=== PATIENT | female | born 2005 | race Caucasian/White ===

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

== ENCOUNTER 2024-04-22 09:17 | Emergency (ER) | payer OTHER, SELFPAY ==
[2024-04-22 09:35] VITALS: BP 129/85; PULSE 114; RESP 16; TEMP 37.2; O2SAT 99
[2024-04-22 09:50] LABS: EDSTREPNEGPOS1 Presumptive Negative
--- NOTE | 2024-04-22 09:50 | ED.URI ---
HPI - URI/Sore Throat General Chief Complaint: Upper Respiratory Infection Stated Complaint: congestion/throat/ears/fever Time Seen by Provider: 04/22/24 09:50 History of Present Illness HPI Narrative: 19 y/o female presented for c/o sore throat, headache, body aches, sinus pressure/congestion, bilateral ear congestion, fever/chills. Onset 2 days. Temp up to 100 yesterday. Denies cough, sob, wheezing, n/v/d. Took advil and flu medication. Denies known sick contacts. Takes emgality for migraine. Related Data Home Medications Medication Instructions Recorded Confirmed albuterol sulfate 90 mcg/actuation 2 puff inhalation DIRECTED 11/25/22 04/22/24 aerosol inhaler atogepant 60 mg tablet (Qulipta) 60 mg USEASDIRECTD 11/25/22 04/22/24 ergocalciferol (vitamin D2) 1,250 1,250 mcg PO WEEKLY 11/25/22 04/22/24 mcg (50,000 unit) capsule folic acid 1 mg tablet 1 mg PO DAILY 11/25/22 04/22/24 topiramate 100 mg tablet 100 mg PO PRN PRN Migraine Headache 11/25/22 04/22/24 bupropion HCl 150 mg 24 hr tablet, 150 mg PO DAILY 04/22/24 04/22/24 extended release galcanezumab-gnlm 120 mg/mL 120 mg subcut PRN PRN Migraine 04/22/24 04/22/24 subcutaneous pen injector Headache (Emgality Pen) norethindrone 1.5 mg-ethinyl 1 tablet PO DAILY 04/22/24 04/22/24 estradiol 30 mcg(21)/iron 75 mg(7) tablet ( (28)) Allergies Allergy/AdvReac Type Severity Reaction Status Date / Time No Known Allergies Allergy Verified 11/25/22 13:50 Review of Systems Review of Systems: CONSTITUTIONAL: Denies body aches, fever, chills, or sweats. EYES: Denies visual changes, redness, or discharge. ENT: reports rhinorrhea, congestion, sore throat, otalgia. CARDIOVASCULAR: Denies chest pain, palpitations, or edema. RESPIRATORY: Denies dyspnea. GASTROINTESTINAL: Denies abdominal pain, nausea, vomiting, or diarrhea. SKIN: Denies rash, itching, or wounds. MUSCULOSKELETAL: Denies back pain, joint pain NEUROLOGIC: reports headache PMFSH Past Medical History Medical History (Updated 04/22/24 @ 10:33 by Tonya Calle APRN) Migraine Surgical History Surgical History (Updated 04/22/24 @ 10:08 by Tonya Calle APRN) History of cholecystectomy History of tonsillectomy Exam Narrative: GENERAL: mildly Ill-appearing, no acute distress. EYES: conjunctivae clear ENT: Mucous membranes moist. TMs pearly negron with normal light reflex bilaterally; no tragal tenderness. Oropharynx not erythematous without lesions. Tonsils absent and without exudate. No drooling, no hoarseness, no trismus, uvula midline. No tripod positioning, hot potato voice, or soft palate swelling. NECK: Supple. No lymphadenopathy CHEST: Clear to auscultation, breath sounds equal. No respiratory distress, speaks in full sentences. HEART: Regular rate and rhythm. No murmur heard. SKIN: Warm, dry, no rash. NEURO: Alert and oriented x3. Course Course Emergency Course: Patient is aware of diagnosis, understands and agrees to treatment plan. Anticipatory guidance given. Patient agrees to follow-up as directed and is aware of reasons to seek care at the emergency department. Portions of this record may have been created with voice recognition software Level of Care: Express Care Visit Vital Signs Vital signs: Vital Signs Temperature 99.0 F 04/22/24 09:35 Pulse Rate 114 H 04/22/24 09:35 Respiratory Rate 16 04/22/24 09:35 Blood Pressure 129/85 04/22/24 09:35 Pulse Oximetry 99 04/22/24 09:35 Oxygen Delivery Room Air 04/22/24 09:35 Temperature 99.0 F 04/22/24 09:35 Pulse Rate 114 H 04/22/24 09:35 Respiratory Rate 16 04/22/24 09:35 Blood Pressure 129/85 04/22/24 09:35 Pulse Oximetry 99 04/22/24 09:35 Oxygen Delivery Room Air 04/22/24 09:35 MDM - URI/Sore Throat MDM Narrative Medical decision making narrative: Neg strep flu and covid result reviewed with pt. Advise supportive treatments. Colby
[2024-04-22 10:29] LABS: EDINFLUASCREEN Negative; EDINFLUBSCREEN Negative
[2024-04-22 10:32] LABS: EDSTREPNEGPOS1 Presumptive Negative
== END 2024-04-22 10:39 | disposition home or self-care (01) ==
PROVIDERS: Emergency Provider Nurse Practitioner Family; PCP Nurse Practitioner Family
DX: B34.9 Viral infection, unspecified (principal); Z20.822 Contact with and (suspected) exposure to COVID-19
CPT/HCPCS: 87081; 87426; 87804; 87880; 99213; G0463

== ENCOUNTER 2024-10-17 13:54 | Emergency (ER) | payer OTHER, SELFPAY ==
--- NOTE | 2024-10-17 13:58 | ED_ITS ---
HPI - General Adult General Chief complaint: Upper Respiratory Infection Stated complaint: Joint Pain Time Seen by Provider: 10/17/24 14:14 Source: patient Mode of arrival: ambulatory Limitations: no limitations History of Present Illness HPI narrative: 19-year-old female presents with concern for body aches for several days. She reports for 10 days she has had nasal congestion, rhinorrhea, postnasal drainage. She had fever for 1 day at the start of her symptoms. She also had 1 episode of vomiting in the last 2 weeks. She reports she is prone to joint pain and muscle aches. MD complaint: Body aches Related Data Home Medications ?Medication ?Instructions ?Recorded ?Confirmed ?Last Taken ?Type albuterol sulfate 90 mcg/actuation 2 puff inhalation DIRECTED 11/25/22 04/22/24 Unknown History aerosol inhaler atogepant 60 mg tablet (Qulipta) 60 mg USEASDIRECTD 11/25/22 04/22/24 Unknown History ergocalciferol (vitamin D2) 1,250 1,250 mcg PO WEEKLY 11/25/22 04/22/24 Unknown History mcg (50,000 unit) capsule folic acid 1 mg tablet 1 mg PO DAILY 11/25/22 04/22/24 Unknown History topiramate 100 mg tablet 100 mg PO PRN PRN Migraine Headache 11/25/22 04/22/24 Unknown History bupropion HCl 150 mg 24 hr tablet, 150 mg PO DAILY 04/22/24 04/22/24 Unknown History extended release galcanezumab-gnlm 120 mg/mL 120 mg subcut PRN PRN Migraine 04/22/24 04/22/24 Unknown History subcutaneous pen injector Headache (Emgality Pen) norethindrone 1.5 mg-ethinyl 1 tablet PO DAILY 04/22/24 04/22/24 Unknown History estradiol 30 mcg(21)/iron 75 mg(7) tablet (June FE 1.530 (28)) Allergies Allergy/AdvReac Type Severity Reaction Status Date / Time cyanocobalamin (vitamin B12) Allergy Mild Rash Verified 10/17/24 14:12 Review of Systems Review of Systems: CONSTITUTIONAL: Denies malaise, chills, sweats. Reports 1 episode of fever. EYES: Denies visual changes, redness, or discharge. ENT: Reports rhinorrhea, congestion, postnasal drainage. Denies sinus pain, otalgia or sore throat. CARDIOVASCULAR: Denies chest pain, palpitations, or edema. RESPIRATORY: Denies cough or dyspnea. GASTROINTESTINAL: Denies abdominal pain, nausea, diarrhea, bloody, or mucous stools. Reports 1 episode of vomiting GENITOURINARY: Denies dysuria, frequency, urgency, or hematuria. SKIN: Denies rash or itching. MUSCULOSKELETAL: Denies back pain, joint pain. Reports myalgia. NEUROLOGIC: Denies numbness, weakness, or headache. All systems reviewed & are unremarkable except as noted in HPI and below PMFSH Past Medical History Medical History (Updated 10/17/24 @ 14:18 by Anna Duran NP) Migraine Surgical History Surgical History (Updated 04/22/24 @ 10:08 by Tonya Calle APRN) History of cholecystectomy History of tonsillectomy Comments At time of signature, agree with nursing past medical, surgical, social and family history. There is no relevant family history pertinent to the presenting complaint Exam Narrative: GENERAL: Well-appearing, well-nourished, and in no acute distress. HEAD: Normocephalic, atraumatic. EYES: PERRLA, sclera clear, and EOMI. No nystagmus. ENT: Nares clear. Mucous membranes moist. TM pearly negron with sharp light reflex bilaterally; no tragal tenderness. Oropharynx without erythema or lesions. Tonsils not enlarged and without exudate. NECK: Supple. No lymphadenopathy. CHEST: No respiratory distress. Clear to auscultation. No bony deformities, no asymmetry. Speaks in full sentences. HEART: Regular rate and rhythm. No murmur heard. Normal peripheral pulses. EXTREMITIES: Normal range of motion. No edema. Normal strength and sensation. SKIN: Warm, dry, no visible rash. NEURO: Alert and oriented x3. PSYCH: Normal mood and affect Course Course Emergency Course: Patient is aware of diagnosis, understands and agrees to treatment plan. Anticipatory guidance given. Patient agrees to follow-up as directed and is aware of reasons to seek care at the emergency department. Portions of this record may have been created with voice recognition software Level of Care: Express Care Visit Vital Signs Vital signs: Reviewed. Medical Decision Making MDM Narrative Medical decision making narrative: The patient was evaluated by myself in the emergency department. History is obtained from patient who is an independent historian and physical exam was performed.? Available medical records were reviewed at this time. ? Exam findings and imaging show no acute concerns or changes; patient is non- toxic appearing and is in no distress. Patient is appropriate for outpatient treatment and follow-up. ? I have evaluated and discussed social determinants of health with the patient that could potentially impact subsequent diagnosis and treatment plans. ? Differential diagnosis and treatment plan were discussed with the patient. Patient agrees with discussion and after shared medical decision making agrees with plan of care. All questions were answered to the patient's satisfaction. Critical Care Time Critical Care Time Critical Care Time: No Discharge Plan Discharge Clinical Impression: Sinusitis Patient Disposition: Home, Self-Care Condition: Stable Instructions: Antibiotic Form, Sinusitis (ED) Additional Instructions: Take medication as prescribed Nonprescription pain medications, such as acetaminophen (eg, Tylenol) or ibuprofen (eg, Motrin, Advil), are recommended for pain. Flushing the nose and sinuses with a saline solution several times per day has been proven to decrease pain associated with congestion and shorten the duration of symptoms. Nasal steroids (such as Flonase, 2 sprays in each nostril daily) can help to reduce swelling inside the nose, usually within two to three days. These drugs have few side effects and relieve symptoms in most people. Oral decongestants (pseudoephedrine and phenylephrine) may be helpful if you have associated symptoms of ear pain or fullness. Nasal decongestant sprays, including oxymetazoline (Afrin) and phenylephrine (Afshin-Synephrine), can be used to temporarily treat congestion. However, these sprays should not be used for more than two to three days due to the risk of rebound congestion (when the nose becomes congested constantly unless the medication is used repeatedly), possible addiction, and long-term consequences of frequent use, including persistent nasal dryness and crusting, which is very difficult to treat once it has developed. Medications to thin secretions (such as guaifenesin) may help to clear mucus. Please follow-up with your primary care doctor in the next 1-2 days. If you cannot follow-up with your primary care doctor please go to the ED for any urgent issues. If you have any worsening of symptoms or any other concerns please go to the ED immediately. Patient Language: Lithuanian Prescriptions: New pseudoephedrine HCl [12 Hour Decongestant] 120 mg tablet extended release 120 mg PO Q12H PRN (Reason: nasal congestion) Qty: 12 0RF amoxicillin-pot clavulanate 875-125 mg tablet 1 tablet PO Q12H 10 Days Qty: 20 0RF No Action folic acid 1 mg tablet 1 mg PO DAILY ergocalciferol (vitamin D2) 1,250 mcg (50,000 unit) capsule 1,250 mcg PO WEEKLY topiramate 100 mg tablet 100 mg PO PRN PRN (Reason: Migraine Headache) Qulipta 60 mg tablet 60 mg USEASDIRECTD albuterol sulfate 90 mcg/actuation HFA aerosol inhaler 2 puff INHALATION DIRECTED norethindrone-e.estradiol-iron [June FE 1.5/30 (28)] 1.5 mg-30 mcg (21)/75 mg (7) tablet 1 tablet PO DAILY bupropion HCl 150 mg tablet extended release 24 hr 150 mg PO DAILY Emgality Pen 120 mg/mL pen injector 120 mg SUBCUT PRN PRN (Reason: Migraine Headache) Follow-up/Referrals: Elba,Laura Vu APN [Primary Care Provider] - Time of Disposition: 14:20
[2024-10-17 14:11] VITALS: BP 119/88; PULSE 101; RESP 16; TEMP 36.7; O2SAT 100
== END 2024-10-17 14:26 | disposition home or self-care (01) ==
PROVIDERS: Emergency Provider Nurse Practitioner; PCP Nurse Practitioner Family
DX: J32.9 Chronic sinusitis, unspecified (principal)
CPT/HCPCS: 99213; G0463

== ENCOUNTER 2025-04-17 08:58 | Outpatient (CLI) | payer OTHER, SELFPAY ==
--- NOTE | ~2025-04-17 | US_ITS ---
EXAMINATION TYPE: US breast BI limited COMPARISON: NONE REASON FOR STUDY: ASYMMETR TO LOWER INNER RIDGE OF R/L BREAST TECHNIQUE: Targeted sonographic evaluation of the bilateral breasts was performed. INTERPRETATION: No mass lesion or fluid collection seen at the areas scanned. No sonographic abnormality seen in the regions scanned. IMPRESSION: No sonographic correlate seen at the areas of clinical concern in the lower, inner breasts. BI-RADS CATEGORY: BI-RADS 1: Negative Reviewed, dictated and finalized at location M. IMPRESSION: No sonographic correlate seen at the areas of clinical concern in the lower, in ner breasts. BI-RADS CATEGORY: BI-RADS 1: Negative
--- OUTSIDE RECORDS SUMMARY | 2025-04-17 09:08 | XMS_ITS | Encounter Summary ---
Author Organization [facility] Address [address] [place] [address] Phone Care Team Providers Care Accounting Representative Name Role Phone Aspen Brock APRN, INTERNATIONAL ACCOUNT MANAGER Unavailable [phone]- [phone] Laura Arreola APRN, MACHINIST HELPER Primary Care Provider [phone] Alejandro Carson MD Unavailable Leslie Guo APRN, MACHINIST HELPER Unavailable Ortiz Martinez MD Unavailable [phone] Reason for Visit * Reason Comments Medication Refill Encounter Details Date Type Department Care Team (Late st Contact Info) Description 05/05/2023 Refill [facility] [address] [place] [id number] Aspen Brock, FIRST ASSISTANT MANAGER, INTERNATIONAL ACCOUNT MANAGER [address] [place] [address] Medication Refill Social History Tobacco Use Types Packs/Day Years Used Date Smoking Tobacco: Never Smokeless Tobacco: Never Alcohol Use Standard Drinks/Week Comments Never 0 (1 standard drink = 0.6 oz pur e alcohol) Sexually Active Control Partners Comments Not Currently Comments No Sex and Gender Information Value Date Recorded Sex Assigned at Not on file Legal Sex Female 10:11 AM CDT Gender Identity Not on file Sexual Orientation Not on file documented as of this encounter Miscellaneous Notes * Telephone Encounter - JaronKerry marin RN - 05/05/2023 7:59 AM CDT Medication failed the protocol, provider to review and approve the medication order if appropriate. Requested Prescriptions Pending Prescriptions Disp Refills topiramate (TOPAMAX) 100 MG Tablet [Pharmacy Med Name: TOPIRAMATE 100MG TABLETS] 60 Tablet 1 Sig: TAKE 1 TABLET BY MOUTH TWICE DAILY Not Delegated - Anticonvulsants Excluding Benzodiazepines Protocol Failed - 05/05/2023 5:38 AM Failed - This refill cannot be delegated Passed - Visit with relevant provider in past 12 months or upcoming 90 days Recent Visits Date Type Provider Dept 02/13/23 Office Visit Aspen Brock APRN, [facility] 10/21/22 Office Visit Aspen Brock APRN, INTERNATIONAL ACCOUNT MANAGER [facility] [address] 10/05/22 Office Visit Aspen Brock APRN, INTERNATIONAL ACCOUNT MANAGER [facility] 09/06/22 Office Visit Aspen Brock APRN, INTERNATIONAL ACCOUNT MANAGER [facility] 07/22/22 Office Visit Aspen Brock APRN, INTERNATIONAL ACCOUNT MANAGER [facility] 06/22/22 Office Visit Aspen Brock APRN, INTERNATIONAL ACCOUNT MANAGER [facility] [address] 05/13/22 Office Visit Aspen Brock APRN, [facility] Showing recent visits within past 365 days and meeting all other requirements Future Appointments Date Type Provider Dept 05/16/23 Appointment Aspen Brock APRN, INTERNATIONAL ACCOUNT MANAGER [facility] Showing future appointments within next 90 days and meeting all other requirements documented in this encounter Plan of Treatment Upcoming Encounters Date Type Department Care Team (Late st Contact Info) Description 04/22/2025 9:15 AM CDT Office Visit [facility] On[facility] [address] [place] [id number] Sophie Aguirre, PAC [address] [place] [address] Rosita Willard, FIRST ASSISTANT MANAGER, MACHINIST HELPER [address] [place] [address] Discharge Disposition: Discharged to home or Selfcare 07/07/2025 3:00 PM CDT [facility] [address] [place] [phone] Aspen Brock FIRST ASSISTANT MANAGER, INTERNATIONAL ACCOUNT MANAGER [address] [place] [address] documented as of this encounter Visit Diagnoses Diagnosis Chronic migraine w/o aura w/o status migrainosus, not intractable Chronic migraine without aura, without mention of intractable migraine without mention of status migrainosus documented in this encounter Care Teams Accounting Representative Relationship Specialty Start Date End Date Laura Arreola APRN, MACHINIST HELPER [address] [address] PCP - General Family Medicine 07/22/22 Aspen Brock, FIRST ASSISTANT MANAGER, INTERNATIONAL ACCOUNT MANAGER [address] [place] [address] Nurse Practitioner Advanced Practice Nurse 12/31/21 Alejandro Carson MD [address] [address] Consulting Physician Colon and Rectal Surgery 06/19/23 Leslie Guo APRN, MACHINIST HELPER [address] [place] [address] Nurse Practitioner Advanced Practice Nurse 12/28/22 Ortiz Martinez MD [address] [place] [address] Consulting Physician Medical Oncology 10/13/23 documented as of this encounter
--- OUTSIDE RECORDS SUMMARY | 2025-04-17 09:08 | XMS_ITS | Referral Summary ---
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); Keratosis pilaris from Last 3 Months Allergies No known active allergies Medications albuterol HFA (PROVENTIL HFA,VENTOLIN HFA,PROAIR HFA) 90 mcg/actuation inhaler 1 Active diphenhydrAMIN E 2.5 mg/mL liquid Take 5 mL (12.5 mg total) by mouth every 6 (six) hours as needed Active famotidine (PEPCID) 20 mg tablet 2 Active dextroamphetam ine-amphetamin e XR (ADDERALL XR) 5 mg 24 hr capsule Take 2 capsules (10 mg total) by mouth every morning Immediate release 2 Active FLUoxetine (PROzac) 10 mg tablet/capsule Take 1 tablet/capsule (10 mg total) by mouth 1 Active fluticasone propionate (FLONASE) 50 mcg/actuation nasal spray 2 Active folic acid (FOLVITE) 1 mg tablet 2 Active topiramate (TOPAMAX) 100 mg tablet Take 1 tablet (100 mg total) by mouth 2 (two) times a day 2 Active Junel 1.5/30, 21, 1.5-30 mg-mcg tablet per tablet 2 Active calcium carbonate-otf min D3 1,250mg (500mg elemental) - 5 mcg (200 units) per tablet Take 1 tablet by mouth 2 (two) times a day with meals 50,000 a week Active traZODone (DESYREL) 50 mg tablet Take 1 tablet (50 mg total) by mouth nightly Active metoclopramide (REGLAN) 5 mg tablet Take 1 tablet (5 mg total) by mouth 2 (two) times a day with lunch and bedtime Active ergocalciferol (VITAMIN D) 50,000 unit capsule Take 1 capsule (50,000 Units total) by mouth 3 Active hyoscyamine (LEVSIN) 0.[address] 1 tablet (0.125 mg total) under the tongue every 4 (four) hours as needed 1 Active cyclobenzaprin e (FLEXERIL) 5 mg tablet Take 1 tablet (5 mg total) by mouth 3 (three) times a day as needed for muscle spasms Active dicyclomine (BENTYL) 20 mg tablet Take 1 tablet (20 mg total) by mouth every 6 (six) hours Active Emgality Pen 120 mg/mL pen injector ADMINISTER 1 ML UNDER THE SKIN EVERY 28 DAYS 3 Active naproxen (NAPROSYN) 500 mg tablet Take 1 tablet (500 mg total) by mouth every 8 (eight) hours as needed 3 Active hydrOXYzine (ATARAX) 10 mg tablet Take 2.5 tablets (25 mg total) by mouth every 8 (eight) hours as needed 3 Active buPROPion XL (WELLBUTRIN XL) 150 mg 24 hr tablet Take 1 tablet (150 mg total) by mouth daily as needed 4 Active propranolol LA (INDERAL LA) 60 mg 24 hr capsule Take 1 capsule (60 mg total) by mouth daily 30 capsule 11 4 06/19/20 25 Active guaiFENesin-co deine (GUAITUSS AC) liquid 100-10 mg/5 mLIndications: Influenza Take 5 mL by mouth 4 (four) times a day as needed for cough or congestion Collaborating physician Avery Mauro MD 120 mL 5 Active Active Problems Problem Noted Date Diagnosed Date Acute bronchospasm due to viral infection 2024 Influenza 11/08/2024 Tachycardia, unspecified 11/02/2023 Syncope and collapse 11/02/2023 Palpitations 08/24/2022 Immunizations Immunization Administration Dates Next Due DTaP 04/02/2008, 4,2003,05/20,2003 Hep A, Ped Unspecified 04/02/2008,02/19/2007 Hep B / HiB 01/20/2004,2003,2003 Hep B, Adolescent or Pediatric 2003 IPV 04/02/2008, 3,2003,03/20 Influenza LAIV (Nasal) 08/06/2012 Influenza, Live, Intranasal, Quadrivalent 08/25/2014 Influenza, Quadrivalent, Spl it, Preservative Free, Intramuscular 07/21/2020,08/17/2015,08/22/2013 Influenza, Split 10/04/2010, 0,08/13/2009,07/31 Influenza, Unspecified 08/23/2007,2003,2003,09/03 MMR 04/02/2008,01/20/2004 Meningococcal MCV4P (Menactra) 07/21/2020,2013 Pneumococcal Conjugate 7-Valent 07/27/20 04,2003,2003,03/20 Tdap 08/22/2013 Varicella 04/02/2008,07/27/2004 Social History Tobacco Use Types Packs/Day Years Used Date Smoking Tobacco: Never Smokeless Tobacco: Never Tobacco Cessation:Counseling Given: Not Answered Alcohol Use Standard Drinks/Week Comments Not Currently 0 (1 standard drink = 0.6 oz pur e alcohol) AUDIT-C Answer Date Recorded Q1: How often do you have a drink containing alcohol? Never 12/21/2023 Q2: How many drinks containi ng alcohol do you have on a typical day when you are drinking? Patient does not drink Q3: How often do you have si x or more drinks on one occasion? Never 12/21/2023 Personal Safety Answer Date Recorded Have you ever been in or are you currently in a harmful physical or emotional relationship or is someone making you feel afraid or unsafe? Denies 11/08/2024 Comments No Sex and Gender Information Value Date Recorded Sex Assigned at Not on file Legal Sex Female 11:11 AM PROCESSING MGR Gender Identity Not on file Sexual Orientation Not on file Last Filed Vital Signs Vital Sign Reading Time Taken Comments Blood Pressure 113/79 11/08/2024 4:06 PM PROCESSING MGR Pulse 104 11/08/2024 4:06 PM PROCESSING MGR Temperature 36.1 C (97 F) 11/08/2024 4:06 PM PROCESSING MGR Respiratory Rate 20 11/08/2024 4:06 PM PROCESSING MGR Oxygen Saturation 97% 11/08/2024 4:06 PM PROCESSING MGR Inhaled Oxygen Concentration - - Weight 75.3 kg (166 lb) 11/08/2024 4:06 PM PROCESSING MGR Height 162.6 cm (5' 4) 11/08/2024 4:06 PM PROCESSING MGR Body Mass Index 28.49 11/08/2024 4:06 PM PROCESSING MGR Plan of Treatment Not on file Insurance [facility] Care Teams Metal Bonding Helper Relationship Specialty Start Date End Date Laura Arreola NP [address] [place] [facility] [place] [id number] PCP - General Nurse Practitioner 08/02/22
--- OUTSIDE RECORDS SUMMARY | 2025-04-17 09:08 | XMS_ITS | Encounter Summary ---
Author Organization [facility] Address [address] [facility] [place] [address] Phone Care Team Providers Care Tire Design Engineer Name Role Phone Aspen Brock APRN, CORE SHAPER TOP Unavailable +- [phone] Laura Arreola APRN, RUBY ENGINEER Primary Care Provider [phone] Alejandro Carson MD Unavailable Leslie Guo APRN, RUBY ENGINEER Unavailable Ortiz Martinez MD Unavailable [phone] Reason for Visit * Reason Comments Medication Refill Encounter Details Date Type Department Care Team (Late st Contact Info) Description 09/22/2023 Refill [facility] - Neurology [facility] [address] [place] [phone] Aspen Brock SLAT PICKLER, CORE SHAPER TOP [address] [place] [address] Medication Refill Social History Tobacco Use Types Packs/Day Years Used Date Smoking Tobacco: Never Smokeless Tobacco: Never Alcohol Use Standard Drinks/Week Comments Never 0 (1 standard drink = 0.6 oz pur e alcohol) Sexually Active Control Partners Comments Not Currently Male Comments No Sex and Gender Information Value Date Recorded Sex Assigned at Not on file Legal Sex Female 10:11 AM CDT Gender Identity Not on file Sexual Orientation Not on file documented as of this encounter Miscellaneous Notes * Telephone Encounter - Kerry Salmeron RN - 09/22/2023 12:55 PM CST Medication failed the protocol, provider to review and approve the medication order if appropriate. Requested Prescriptions Pending Prescriptions Disp Refills topiramate (TOPAMAX) 100 MG Tablet [Pharmacy Med Name: TOPIRAMATE 100MG TABLETS] 180 Tablet Sig: TAKE 1 TABLET BY MOUTH TWICE DAILY Not Delegated - Anticonvulsants Excluding Benzodiazepines Protocol Failed - 09/22/2023 5:40 AM Failed - This refill cannot be delegated Passed - Visit with relevant provider in past 12 months or upcoming 90 days Recent Visits Date Type Provider Dept 05/16/23 Office Visit Apsen Brock APRN, [facility] 02/13/23 Office Visit Aspen Brock APRN, [facility] 10/21/22 Office Visit Aspen Brock APRN, [facility] 10/05/22 Office Visit Aspen Brock APRN, [facility] Showing recent visits within past 365 days and meeting all other requirements Future Appointments Date Type Provider Dept 11/15/23 Appointment Aspen Brock APRN, [facility] Showing future appointments within next 90 days and meeting all other requirements NDANT COIN OPERATED LAUNDRY documented in this encounter Plan of Treatment Upcoming Encounters Date Type Department Care Team (Late st Contact Info) Description 04/22/2025 9:15 AM CDT Office Visit [facility] Oncology Services [address] [place] [phone] Sophie Aguirre, PAC [address] [place] [address] Rosita Willard SLAT PICKLER, RUBY ENGINEER [address] [place] [address] Discharge Disposition: Discharged to home or Selfcare 07/07/2025 3:00 PM CDT Office Visit [facility] - Neurology [facility] [address] [place] [address] Aspen Brock APRN, CORE SHAPER TOP [address] [place] [address] documented as of this encounter Visit Diagnoses Diagnosis Chronic migraine w/o aura w/o status migrainosus, not intractable Chronic migraine without aura, without mention of intractable migraine without mention of status migrainosus documented in this encounter Care Teams Tire Design Engineer Relationship Specialty Start Date End Date Laura Arreola APRN, RUBY ENGINEER [address] [address] PCP - General Family Medicine 07/22/22 Aspen Brock APRN, CORE SHAPER TOP [address] [place] [address] Nurse Practitioner Advanced Practice Nurse 12/31/21 Alejandro Carson MD [address] [address] Consulting Physician Colon and Rectal Surgery 06/19/23 Leslie Guo APRN, RUBY ENGINEER [address] [place] [address] Nurse Practitioner Advanced Practice Nurse 12/28/22 Ortiz Martinez MD [address] [place] [address] Consulting Physician Medical Oncology 10/13/23 documented as of this encounter
--- OUTSIDE RECORDS SUMMARY | 2025-04-17 09:08 | XMS_ITS | Encounter Summary ---
Author Organization [facility] Address [address] [facility] [place] [address] Phone Care Team Providers Care Circus Performer Name Role Phone Aspen Brock APRN, PHOTOGRAPHER LITHOGRAPHIC Unavailable [phone]- [phone] Laura Arreola APRN, SHOW CARD WRITER Primary Care Provider [phone] Alejandro Carson MD Unavailable Leslie Guo APRN, SHOW CARD WRITER Unavailable Ortiz Martinez MD Unavailable [phone] Reason for Visit * Reason Comments Medication Refill Encounter Details Date Type Department Care Team (Late st Contact Info) Description 09/16/2022 Refill [facility] - [facility] [address] [place] [phone] Aspen Brock PATIENT ADMITTING REPRESENTATIVE, PHOTOGRAPHER LITHOGRAPHIC [address] [place] [address] Medication Refill Social History Tobacco Use Types Packs/Day Years Used Date Smoking Tobacco: Never Smokeless Tobacco: Never Alcohol Use Standard Drinks/Week Comments Never 0 (1 standard drink = 0.6 oz pur e alcohol) Comments No Sex and Gender Information Value Date Recorded Sex Assigned at Not on file Legal Sex Female 10:11 AM CDT Gender Identity Not on file Sexual Orientation Not on file COVID-19 Exposure Response Date Recorded In the last 10 days, have yo u been in contact with someone who was confirmed or suspected to have Coronavirus/COVID-19? No / Unsure 09/12/2022 10:43 AM LIFE SKILLS COORDINATOR VOLUNTEER documented as of this encounter Plan of Treatment Upcoming Encounters Date Type Department Care Team (Late st Contact Info) Description 04/22/2025 9:15 AM CDT [facility] [address] [place] [phone] Sophie Aguirre, PAC [address] [place] [address] Rosita Willard APRN, SHOW CARD WRITER [address] [place] [address] Discharge Disposition: Discharged to home or Selfcare 07/07/2025 3:00 PM CDT Office Visit [facility] Neurology [facility] [address] [place] [phone] Asepn Brock PATIENT ADMITTING REPRESENTATIVE, PHOTOGRAPHER LITHOGRAPHIC [address] [place] [address] documented as of this encounter Visit Diagnoses Diagnosis Chronic migraine w/o aura w/o status migrainosus, not intractable Chronic migraine without aura, without mention of intractable migraine without mention of status migrainosus documented in this encounter Care Teams Circus Performer Relationship Specialty Start Date End Date Laura Arreola APRN, SHOW CARD WRITER [address] [place] [address] PCP - General Family Medicine 07/22/22 Aspen Brock, PATIENT ADMITTING REPRESENTATIVE, PHOTOGRAPHER LITHOGRAPHIC [address] [place] [address] Nurse Practitioner Advanced Practice Nurse 12/31/21 Alejandro Carson MD #[address] [address] Consulting Physician Colon and Rectal Surgery 06/19/23 Leslie Guo APRN, SHOW CARD WRITER [address] [place] [address] Nurse Practitioner Advanced Practice Nurse 12/28/22 Ortiz Martinez MD [address] [place] [address] Consulting Physician Medical Oncology 10/13/23 documented as of this encounter
--- OUTSIDE RECORDS SUMMARY | 2025-04-17 09:08 | XMS_ITS | Encounter Summary ---
Author Organization [facility] Address [address] [facility] [place] [address] Phone Care Team Providers Care Panama Hat Blocker Name Role Phone Aspen Brock APRN, INSIDE SALES ACCOUNT MANAGER Unavailable [phone]- [phone] Laura Arreola APRN, COMBINATION WELDER Primary Care Provider [phone] Alejandro Carson MD Unavailable Leslie Guo APRN, COMBINATION WELDER Unavailable Ortiz Martinez MD Unavailable [phone] Reason for Visit * Reason Comments Medication Refill Encounter Details Date Type Department Care Team (Late st Contact Info) Description 11/17/2022 Refill [facility] - Neurology [facility] [address] [place] [phone] Aspen Brock CAPTAIN ROOM SERVICE, INSIDE SALES ACCOUNT MANAGER [address] [place] [address] Medication Refill Social History Tobacco Use Types [...] suspected to have Coronavirus/COVID-19? No / Unsure 10/21/2022 10:58 AM HORTICULTURAL WORKER documented as of this encounter Plan of Treatment Upcoming Encounters Date Type Department Care Team (Late st Contact Info) Description 04/22/2025 9:15 AM CDT [facility] [address] [place] [phone] Sophie Aguirre, PAC [address] [place] [address] Rosita Willard APRN, COMBINATION WELDER [address] [place] [address] Discharge Disposition: Discharged to home or Selfcare 07/07/2025 3:00 PM CDT Office Visit [facility] Neurology [facility] [address] [place] [phone] Aspen Brock CAPTAIN ROOM SERVICE, INSIDE SALES ACCOUNT MANAGER [address] [place] [address] documented as of this encounter Visit Diagnoses Diagnosis Chronic migraine w/o aura w/o status migrainosus, not intractable Chronic migraine without aura, without mention of intractable migraine without mention of status migrainosus documented in this encounter Care Teams Panama Hat Blocker Relationship Specialty Start Date End Date Laura Arreola APRN, COMBINATION WELDER [address] [place] [address] PCP - General Family Medicine 07/22/22 Aspen Brock, CAPTAIN ROOM SERVICE, INSIDE SALES ACCOUNT MANAGER [address] [place] [address] Nurse Practitioner Advanced Practice Nurse 12/31/21 Alejandro Carson MD #[address] [address] Consulting Physician Colon and Rectal Surgery 06/19/23 Leslie Guo APRN, COMBINATION WELDER [address] [place] [address] Nurse Practitioner Advanced Practice Nurse 12/28/22 Ortiz Martinez MD [address] [place] [address] Consulting Physician Medical Oncology 10/13/23 documented as of this encounter
--- OUTSIDE RECORDS SUMMARY | 2025-04-17 09:08 | XMS_ITS | Encounter Summary ---
Author Organization [facility] Address [address] [facility] [place] [address] Phone Care Team Providers Care Professor Of Archaeology Name Role Phone Aspen Brock APRN, STATE GAME WARDEN Unavailable [phone]- [phone] Laura Arreola APRN, SHEET METAL JOURNEYMAN Primary Care Provider [phone] Alejandro Carson MD Unavailable Leslie Guo APRN, SHEET METAL JOURNEYMAN Unavailable Ortiz Martinez MD Unavailable [phone] Reason for Visit * Reason Comments Medication Refill Encounter Details Date Type Department Care Team (Late st Contact Info) Description 10/14/2023 Refill [facility] - Neurology [facility] [address] [place] [phone] Aspen Brock CASTING WHEEL OPERATOR HELPER, STATE GAME WARDEN [address] [place] [address] Medication Refill Social History Tobacco Use Types [...] Telephone Encounter - Kerry Salmeron RN - 10/16/2023 8:42 AM CST Medication failed the protocol, provider to review and approve the medication order if appropriate. Requested Prescriptions Pending Prescriptions Disp Refills Emgality 120 MG/ML Solution Auto-injector [Pharmacy Med Name: Emgality 120 MG/ML Subcutaneous Solution Auto-injector] 1 mL 2 Sig: INJECT 120 MG UNDER THE SKIN EVERY 28 DAYS Not Delegated - Off Protocol Failed - 10/14/2023 9:53 AM Failed - This refill cannot be delegated Passed - Visit with relevant provider in past 12 months or upcoming 90 days Recent Visits Date Type Provider Dept 05/16/23 Office Visit Aspen Brock APRN, [facility] 02/13/23 Office Visit Aspen Brock APRN, STATE GAME WARDEN [facility] 10/21/22 Office Visit Aspen Brock APRN, [facility] Showing recent visits within past 365 days and meeting all other requirements Future Appointments Date Type Provider Dept 11/15/23 Appointment [facility] Showing future appointments within next 90 days and meeting all other requirements [facility] documented in this encounter Plan of Treatment Upcoming Encounters Date Type Department Care Team (Late st Contact Info) Description 04/22/2025 9:15 AM CDT Office Visit [facility] On[facility] Services [address] [place] [address] Sophie Aguirre, PAC [address] [place] [address] Rosita Willard CASTING WHEEL OPERATOR HELPER, SHEET METAL JOURNEYMAN [address] [place] [address] Discharge Disposition: Discharged to home or Selfcare 07/07/2025 3:00 PM CDT Office Visit [facility] - Neurology [facility] [address] [place] [address] Aspen Brock APRN, STATE GAME WARDEN [address] [place] [address] documented as of this encounter Visit Diagnoses Not on filedocumented in this encounter Care Teams Professor Of Archaeology Relationship Specialty Start Date End Date Laura Arreola APRN, SHEET METAL JOURNEYMAN [address] [place] [address] PCP - General Family Medicine 07/22/22 Aspen Brock APRN, STATE GAME WARDEN [address] [place] [address] Nurse Practitioner Advanced Practice Nurse 12/31/21 Alejandro Carson MD #[address] [address] Consulting Physician Colon and Rectal Surgery 06/19/23 Leslie Guo APRN, SHEET METAL JOURNEYMAN [address] [place] [address] Nurse Practitioner Advanced Practice Nurse 12/28/22 Ortiz Martinez MD [address] [place] [address] Consulting Physician Medical Oncology 10/13/23 documented as of this encounter
--- OUTSIDE RECORDS SUMMARY | 2025-04-17 09:08 | XMS_ITS | Clinical Summary ---
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); Keratosis pilaris from Last 3 Months Immunizations Immunization Administration Dates Next Due DTaP [...] 7-Valent 07/27/20 04,2003,2003,03/20 Tdap 08/22/2013 Varicella 04/02/2008,07/27/2004 Surgical History Surgery Date Site/Laterality Comments TONSILLECTOMY ADENOIDECTOMY W/ MYRINGOTOMY AND TUBES COLONOSCOPY W/ ENDOSCOPIC FNA/FNB CHOLECYSTECTOMY 08/01/2023 Medical History Medical History Date Comments POTS (postural orthostatic tachycardia syndrome) POTS (postural orthostatic tachycardia syndrome) Adhd Anxiety Depression Migraines Asthma exercise induced Family History Medical History Relation Name Comments Breast cancer Maternal Grandmother Cancer Maternal Grandmother Colon cancer Maternal Grandmother Celiac disease Mother Raynaud syndrome Mother Rheum arthritis Mother Diabetes Paternal Grandmother Relation Name Status Comments Maternal Grandmother Mother Alive Paternal Grandmother Social History Tobacco Use Types Packs/Day Years [...] on file Legal Sex Female 11:11 AM REFINERY OPERATOR VISBREAKING Gender Identity Not on file Sexual Orientation Not on file Obstetrics History Last Filed Vital Signs Vital Sign Reading Time Taken Comments Blood Pressure 113/79 11/08/2024 4:06 PM REFINERY OPERATOR VISBREAKING Pulse 104 11/08/2024 4:06 PM REFINERY OPERATOR VISBREAKING Temperature 36.1 C (97 F) 11/08/2024 4:06 PM REFINERY OPERATOR VISBREAKING Respiratory Rate 20 11/08/2024 4:06 PM REFINERY OPERATOR VISBREAKING Oxygen Saturation 97% 11/08/2024 4:06 PM REFINERY OPERATOR VISBREAKING Inhaled Oxygen Concentration - - Weight 75.3 kg (166 lb) 11/08/2024 4:06 PM REFINERY OPERATOR VISBREAKING Height 162.6 cm (5' 4) 11/08/2024 4:06 PM REFINERY OPERATOR VISBREAKING Body Mass Index 28.49 11/08/2024 4:06 PM REFINERY OPERATOR VISBREAKING Plan of Treatment Health Maintenance Due Date Last Done Comments Cervical Cancer Screening 2003 Depression Screening 2003 Hepatitis C Screening 2003 Pneumococcal vaccine <65 (1 of 1 - PPSV23) 2009 07/27/2004, 2003, 2003, Additional history exists HPV Vaccines (1 - 3-dose series) 2018 Meningococcal B Vaccine (1 o f 2 - Standard) 2019 Regular Well Visit/Exam 18-64 2021 DTaP/Tdap/Td Vaccine (7 - Td or Tdap) 08/22/2023 08/22/2013, 04/02/2008, 07/27/2004, Additional history exists Covid-19 Vaccine (4 2023-2 5 season) 2024 09/21/2022, 04/30/2021, 04/02/2021 Influenza Vaccine (#1) 2025 , 07/21/2020, 08/17/2015, Additional history exists Hepatitis B Screening Completed 01/20/2004 , 2003, 2003, Additional history exists Varicella Vaccines Completed 04/02/2008, 07/27/2004 Insurance [facility] [place] [phone] [facility] Care Teams Recruiting Operations Consultant Relationship Specialty Start Date End Date Laura Arreola NP [address] [place] [address] PCP - General Nurse Practitioner 08/02/22
--- OUTSIDE RECORDS SUMMARY | 2025-04-17 09:08 | XMS_ITS | Continuity of Care Document ---
Author Organization [facility] Address [address] [facility] [address] [place] [address] Phone Care Team Providers Care Director Of Therapy Services Name Role Phone Magdaleno OD, Suleiman Unavailable Unavailable Procedures Procedure Date Eye Exam & Treatment Refraction Eye Exam, New Patient Refraction Advance Directives Directive Yes / No Effective Date File Name No Information Encounters Encounter Description Practice Location Reason(s) For Visit Diagnoses Date Provider Providers Copied on Encounter [facility], [address] [place] [address] [address], [place], [place], [id number], tel:[phone] [facility] No Information Dec- 7-201 0 Magdaleno OD Suleiman. [address], [place], [place], [facility], [place]. tel:[phone] [facility], [address] [place] [address] [address], [place], [place], [id number], tel:[phone] [facility] No Information 3-200 8 Magdaleno OD Suleiman. [address], [place], [address], [place]. tel:[phone] Family History Family Member Type Diagnosis Age At Onset No Information Payers Payer name Insurance type Covered democrat ID Authoriza tion(s) Medicaid [facility] [id number] Social History Type Description Quantity Date Captured Comments Sex Female Smoking Status No Information Chief Complaint And Reason For Visit No Information Reason For Referral Reason For Referral No Information History Of Present Illness Encounter Date Complaint History Of Prese nt Illness No Information Functional Status Date Functional Assessmen t No Information Instructions Date Instruction Additional Infor mation No Information Assessments Type Assessment Date No Information Patient Care Teams Name Effective Dates (start - stop) Status Members No Information
--- OUTSIDE RECORDS SUMMARY | 2025-04-17 09:08 | XMS_ITS | Encounter Summary ---
Author Organization [facility] Address [address] [facility] [place] [address] Phone Care Team Providers Care Medical Affairs Leader Name Role Phone Aspen Brock APRN, AUTOMOBILE ENGINE ASSEMBLER Unavailable [phone]- [phone] Laura Arreola APRN, HUSKER OPERATOR Primary Care Provider [phone] Alejandro Carson MD Unavailable Leslie Guo APRN, HUSKER OPERATOR Unavailable Ortiz Martinez MD Unavailable [phone] Encounter Details Date Type Department Care Team (Late st Contact Info) Description 09/12[facility]2022 [facility] [address] [place] [address] Ortiz Martinez MD [address] [place] [address] Social History Tobacco Use Types Packs/Day Years [...] Coronavirus/COVID-19? No / Unsure 09/12/2022 10:43 AM MANAGER PEDIATRIC documented as of this encounter Miscellaneous Notes * Telephone Encounter - Magalys Skinner - 09/12/2022 1:12 PM CST Orders pended for the patient to complete at [facility] in [place]. Please review and sign orders and Iwill make sure to fax the orders to the designated facility. . Thank you. GER PEDIATRIC GER PEDIATRIC documented in this encounter Plan of Treatment Upcoming Encounters Date Type Department Care Team (Late st Contact Info) Description 04/22/2025 9:15 AM CDT [facility] [address] [place] [id number] Sophie Aguirre, [facility] [address] [place] [address] Rosita Willard APRN, HUSKER OPERATOR [address] [place] [address] Discharge Disposition: Discharged to home or Selfcare 07/07/2025 3:00 PM CDT Office Visit [facility] - Neurology - [place] [address] [place] [address] Aspen Brock SPEECH COMMUNICATION PROFESSOR, AUTOMOBILE ENGINE ASSEMBLER [address] [place] [address] documented as of this encounter Visit Diagnoses Not on filedocumented in this encounter Care Teams Medical Affairs Leader Relationship Specialty Start Date End Date Laura Arreola APRN, HUSKER OPERATOR [address] [place] [address] PCP - General Family Medicine 07/22/22 Aspen Brock APRN, AUTOMOBILE ENGINE ASSEMBLER [address] [place] [address] Nurse Practitioner Advanced Practice Nurse 12/31/21 Alejandro Carson MD #[address] [address] Consulting Physician Colon and Rectal Surgery 06/19/23 Leslie Guo APRN, HUSKER OPERATOR [address] [place] [address] Nurse Practitioner Advanced Practice Nurse 12/28/22 Ortiz Martinez MD [address] [place] [address] Consulting Physician Medical Oncology 10/13/23 documented as of this encounter
--- OUTSIDE RECORDS SUMMARY | 2025-04-17 09:08 | XMS_ITS | Clinical Summary ---
Author Organization [facility] Address [address] [place] [address] Care Team Providers Care Business Management Specialist Name Role Phone Tonya Lr MD Primary Care Provider [phone] Source Comments [facility] [employer],non-owned Affiliates and Associated Physician Practices is amultiple site organization consisting of ambulatory clinics and hospital sitesin [place], [place], [place] and [place]. This disclosure is being madepursuant to the Care Everywhere program and may not contain all information available regarding this patient. Last updated 18.[facility] [employer] Allergies No known active allergies Medications * This document contains information received from the source organization and may not represent a complete record from that organization. * Be aware that medications may not be up to date on this document. Alwaysverify current medications with the patient. 1.5-30 MG-MCG tablet TK 1 T PO QD CONTINUOUSLY 0 Active ibuprofen (MOTRIN) 400 MG tablet Take 400 mg by mouth every 6 hours as needed for Pain Active Acetaminophen-C aff-Pyrilamine (MIDOL COMPLETE) 500-60-15 MG Active famotidine (PEPCID) 20 MG tablet Take 1 tablet by mouth once daily 30 tablet 4 0 Active FLUoxetine (PROZAC) 10 MG capsule Take 10 mg by mouth once daily 1 Active albuterol HFA (PROVENTIL;VENT KENNETH;PROAIR) 108 (90 Base) MCG/ACT inhaler 2-4 puffs with aerochamber before exercise 1 Inhaler 3 1 Active hyoscyamine 0.125 MG SL tablet Dissolve 1 (one) tablet under the tongue every 4 hours as needed for Spasms 60 tablet 3 1 Active Active Problems Problem Noted Date Diagnosed Date Heartburn 10/28/2019 Keratosis pilaris 03/31/2016 Overview (03/31/2016): Onset age 10, using 12% ammonium lactate (per Dr. Lr) 03/31/16 anticipatory guidance. Exercise-induced asthma 01/28/2015 Assessment & Plan (01/13/2021 9:09 AM CDT): Her symptoms seem to fall into this category for the most part especially in light of the atopic FHx (Dad's history unknown). She has previously been seen for this and the considerations at the time included EIA vs vocal cord dysfunction. I tried to tease out symptoms that would seem consistent with the latter but this was not at all clear. I think it makes sense though to keep this in mind. Doubt large airway lesion such as hemangioma, polyp etc Rec: Albuterol 2-4 puffs 15-30 minutes prior to exercise Reviewed Aerochamber technique, provided device Reviewed inhaler technique Consider speech therapy referral if symptoms don't improve with albuterol F/U prn Assessment & Plan (01/28/2015 12:01 PM CDT): She is having symptoms of trouble breathing that are not clearly vocal cord dysfunction like or asthma like by history. The subclinical character, the gesture to her throat when describing are suggestive, the lack of clarity on inspiratory in character speaks against. I would like to have mom work with her on a few things to help with arriving at a diagnosis. Mom and I talked over how Yoko could try some resistive breathing to see if this helps with symptoms. If this does but incompletely we could have her see speech therapy to formalize instruction on technique. I would also like her to do trial of albuterol with activity. Dispensed and instructed on aerochamber and albuterol. If this clearly helps this would suggest an asthma component. PFTs today had some evidence of small airways flow decrease but technique was an issue. If albuterol clearly helps will consider asthma more strongly. I discussed with Mom that if Yoko has inprovment with and needs albuterol more than 2x a week or for a few days more than 2 x a month we should consider controller therapy. Will reassess in 2 months. GERD (gastroesophageal reflux disease) 5 Assessment & Plan (01/28/2015 12:02 PM CDT): She is having daily symptoms of regurgitation with an acidic taste. Instructed on avoiding caffeine (which they largely do already) and spicy foods. Start Pepcid OTC 20 mg bid. Abdominal pain 04/13/2010 Overview (07/09/2015): Chronic bilateral thoracic back pain Family History Medical History Relation Name Comments Autism Spectrum Disorder Brother Asp erger's Asthma Maternal Grandmother on Symb icort, albuterol prn Other - Cardiac Maternal Grandmother atri al fib Asthma Maternal Uncle Acne Mother Dysmenorrhea Allergies Mother Vitamin D def Arthritis - Rheumatoid Mother Asthma Mother Mom says EIA Migraine Mother Other - Gastrointestinal Mother Cancer - Other Other Dad's family Diabetes - Type 2 Other Relation Name Status Comments Brother Maternal Grandmother Maternal Uncle Mother Other Social History Tobacco Use Types Packs/Day Years Used Date Smoking Tobacco: Never Smokeless Tobacco: Never Comments:dad outside Comments No Sex and Gender Information Value Date Recorded Sex Assigned at Not on file Legal Sex Female 5:45 AM DRUM ATTENDANT Gender Identity Not on file Sexual Orientation Not on file Last Filed Vital Signs Vital Sign Reading Time Taken Comments Blood Pressure 98/60 12/06/2019 2:30 PM DRUM ATTENDANT Pulse 105 01/13/2021 8:30 AM CDT Temperature 37 C (98.6 F) 12/06/2019 2:00 PM DRUM ATTENDANT Respiratory Rate 16 01/13/2021 8:30 AM CDT Oxygen Saturation 97% 01/13/2021 8:30 AM CDT Inhaled Oxygen Concentration - - Weight 69.4 kg (153 lb) 05/04/2021 8:45 AM CDT Height 163.3 cm (5' 4.3) 05/04/2021 8:45 AM CDT Body Mass Index 26.02 05/04/2021 8:45 AM CDT Plan of Treatment Health Maintenance Due Date Last Done Comments HIV SCREENING 2018 HPV VACCINE (1 - 3-dose series) 2018 CHLAMYDIA/GONORRHEA SCREENING 2019 MENINGOCOCCAL (Group B) VACC INE SHARED DECISION-MAKING (1 of 2 - Standard) 2019 HEPATITIS C SCREENING 01/10/2021 DTAP/TDAP/TD VACCINES (1 - Tdap) 2022 HEPATITIS B VACCINE (1 of 3 - 19+ 3-dose series) 2022 PNEUMOCOCCAL VACCINE (1 of 2 - PCV) 2022 PAP SMEAR 01/16/2024 COVID-19 VACCINE (1 - 2023-2 5 season) 2024 DEPRESSION SCREENING 10/09/2024 INFLUENZA VACCINE (#1) 2025 ZOSTER VACCINE (1 of 2) 2053 HIB VACCINE Aged Out No longer eligi ble based on patient's age to complete this topic MENINGOCOCCAL GROUPS A/C/Y/W VACCINE Aged Out No longer eligible b ased on patient's age to complete this topic Insurance [facility] Care Teams Business Management Specialist Relationship Specialty Start Date End Date Tonya Lr MD [address] [place] [address] [address] [place] [address] PCP - General 04/13/10
--- OUTSIDE RECORDS SUMMARY | 2025-04-17 09:08 | XMS_ITS | Encounter Summary ---
Author Organization [facility] Address [address] [facility] [place] [address] Phone Care Team Providers Care Transportation Engineering Technician Name Role Phone Aspen Brock APRN, INSIDE SOLAR SALES CONSULTANT Unavailable [phone] Laura Arreola APRN, CUP SETTER LOCKSTITCH Primary Care Provider [phone] Alejandro Carson MD Unavailable Leslie Guo APRN, CUP SETTER LOCKSTITCH Unavailable Ortiz Martinez MD Unavailable [phone] Reason for Visit * Reason Comments Medication Refill Encounter Details Date Type Department Care Team (Late Contact Info) Description 03/06/2023 Refill [facility] - Neurology [facility] [address] [place] [id number] Aspen Brock APRN, INSIDE SOLAR SALES CONSULTANT [address] [place] [address] Medication Refill Social History Tobacco Use Types [...] suspected to have Coronavirus/COVID-19? No / Unsure 02/14/2023 7:34 AM CDT documented as of this encounter Miscellaneous Notes * Telephone Encounter - Kerry Salmeron RN - 03/07/2023 8:18 AM CDT Medication failed the protocol, provider to review and approve the medication order if appropriate. Requested Prescriptions Pending Prescriptions Disp Refills topiramate (TOPAMAX) 100 MG Tablet [Pharmacy Med Name: TOPIRAMATE 100MG TABLETS] 60 Tablet 1 Sig: TAKE 1 TABLET BY MOUTH TWICE DAILY Not Delegated - Anticonvulsants Excluding Benzodiazepines Protocol Failed - 03/06/2023 5:37 AM Failed - This refill cannot be delegated Passed - Visit with relevant provider in past 12 months or upcoming 90 days Recent Visits Date Type Provider Dept 02/13/23 Office Visit Aspen Brock APRN, INSIDE SOLAR SALES CONSULTANT [facility] [address] 10/21/22 Office Visit Aspen Brock APRN, INSIDE SOLAR SALES CONSULTANT [facility] [address] 10/05/22 Office Visit Aspen Brock APRN, INSIDE SOLAR SALES CONSULTANT [facility] [address] 09/06/22 Office Visit Aspen Brock APRN, INSIDE SOLAR SALES CONSULTANT [facility] [address] 07/22/22 Office Visit Aspen Brock APRN, INSIDE SOLAR SALES CONSULTANT [facility] [place] [facility] [address] 06/22/22 Office Visit Aspen Brock APRN, INSIDE SOLAR SALES CONSULTANT [facility] [address] 05/13/22 Office Visit Aspen Brock APRN, INSIDE SOLAR SALES CONSULTANT [facility] [place] [facility] [address] 04/01/22 Telemedicine Aspen Brock APRN, INSIDE SOLAR SALES CONSULTANT [facility] [address] Showing recent visits within past 365 days and meeting all other requirements Future Appointments Date Type Provider Dept 05/16/23 Appointment Aspen Brock APRN, INSIDE SOLAR SALES CONSULTANT [facility] Showing future appointments within next 90 days and meeting all other requirements documented in this encounter Plan of Treatment Upcoming Encounters Date Type Department Care Team (Late st Contact Info) Description 04/22/2025 9:15 AM CDT Office Visit [facility] Oncology Services [address] [place] [address] Sophie Aguirre, PAC [address] [place] [address] Rosita Willard APRN, CUP SETTER LOCKSTITCH [address] [place] [address] Discharge Disposition: Discharged to home or Selfcare 07/07/2025 3:00 PM CDT Office Visit [facility] [address] [place] [phone] Aspen Brock KITCHEN AND COUNTER WORKER, INSIDE SOLAR SALES CONSULTANT [address] [place] [address] documented as of this encounter Visit Diagnoses Diagnosis Chronic migraine w/o aura w/o status migrainosus, not intractable Chronic migraine without aura, without mention of intractable migraine without mention of status migrainosus documented in this encounter Care Teams Transportation Engineering Technician Relationship Specialty Start Date End Date Laura Arreola APRN, CUP SETTER LOCKSTITCH [address] [place] [address] PCP - General Family Medicine 07/22/22 Aspen Brock KITCHEN AND COUNTER WORKER, INSIDE SOLAR SALES CONSULTANT [address] [place] [address] Nurse Practitioner Advanced Practice Nurse 12/31/21 Alejandro Carson MD #[address] [address] Consulting Physician Colon and Rectal Surgery 06/19/23 Leslie Guo APRN, CUP SETTER LOCKSTITCH [address] [place] [address] Nurse Practitioner Advanced Practice Nurse 12/28/22 Ortiz Martinez MD [address] [place] [address] Consulting Physician Medical Oncology 10/13/23 documented as of this encounter
--- OUTSIDE RECORDS SUMMARY | 2025-04-17 09:08 | XMS_ITS | Encounter Summary ---
Author Organization [facility] Address [address] [facility] [place] [place] [address] Phone Care Team Providers Care Area Safety Manager Name Role Phone Aspen Brock APRN, CHANGE MANAGEMENT EXPERT Unavailable [phone]- [phone] Laura Arreola APRN, CERTIFIED SCRUM MASTER Primary Care Provider [phone] Alejandro Carson MD Unavailable Leslie Guo APRN, CERTIFIED SCRUM MASTER Unavailable Ortiz Martinez MD Unavailable [phone] Reason for Visit * Reason Comments Medication Refill Encounter Details Date Type Department Care Team (Late Contact Info) Description 01/12/2023 Refill [facility] - [facility] [address] [place] [id number] Aspen Brock APRN, CHANGE MANAGEMENT EXPERT [address] [place] [address] Medication Refill Social History Tobacco Use Types [...] suspected to have Coronavirus/COVID-19? No / Unsure 01/11/2023 7:01 AM CDT documented as of this encounter Miscellaneous Notes * Telephone Encounter - Kerry Salmeron RN - 01/12/2023 3:41 PM CDT Medication failed the protocol, provider to review and approve the medication order if appropriate. Requested Prescriptions Pending Prescriptions Disp Refills topiramate (TOPAMAX) 100 MG Tablet [Pharmacy Med Name: TOPIRAMATE 100MG TABLETS] 60 Tablet 1 Sig: TAKE 1 TABLET BY MOUTH TWICE DAILY Not Delegated - Anticonvulsants Excluding Benzodiazepines Protocol Failed - 01/12/2023 3:40 PM Failed - This refill cannot be delegated Passed - Visit with relevant provider in past 12 months or upcoming 90 days Recent Visits Date Type Provider Dept 10/21/22 Office Visit Aspen Brock APRN, CHANGE MANAGEMENT EXPERT [facility] 10/05/22 Office Visit Aspen Brock APRN, CHANGE MANAGEMENT EXPERT [facility] [address] 09/06/22 Office Visit Aspen Brock APRN, CHANGE MANAGEMENT EXPERT [facility] 07/22/22 Office Visit Aspen Brock APRN, CHANGE MANAGEMENT EXPERT [facility] 06/22/22 Office Visit Aspen Brock APRN, CHANGE MANAGEMENT EXPERT [facility] 05/13/22 Office Visit Aspen Brock APRN, CHANGE MANAGEMENT EXPERT [facility] [address] 04/01/22 Telemedicine Aspen Brock APRN, CHANGE MANAGEMENT EXPERT [facility] 01/27/22 Office Visit Aspen Brock APRN, CHANGE MANAGEMENT EXPERT [facility] Showing recent visits within past 365 days and meeting all other requirements Future Appointments No visits were found meeting these conditions. Showing future appointments within next 90 days and meeting all other requirements documented in this encounter Plan of Treatment Upcoming Encounters Date Type Department Care Team (Late st Contact Info) Description 04/22/2025 9:15 AM CDT [facility] [address] [place] [phone] Sophie Aguirre Della, PAC [address] [place] [address] Rosita Willard APRN, CERTIFIED SCRUM MASTER [address] [place] [address] Discharge Disposition: Discharged to home or Selfcare 07/07/2025 3:00 PM CDT Office Visit [facility] [address] [place] [address] Aspen Brock APRN, CHANGE MANAGEMENT EXPERT [address] [place] [address] documented as of this encounter Visit Diagnoses Diagnosis Chronic migraine w/o aura w/o status migrainosus, not intractable Chronic migraine without aura, without mention of intractable migraine without mention of status migrainosus documented in this encounter Care Teams Area Safety Manager Relationship Specialty Start Date End Date Laura Arreola APRN, CERTIFIED SCRUM MASTER [address] [address] PCP - General Family Medicine 07/22/22 Aspen Brock, COMMISSION AGENT LIVESTOCK, CHANGE MANAGEMENT EXPERT [address] [place] [address] Nurse Practitioner Advanced Practice Nurse 12/31/21 Alejandro Carson MD #[address] [address] Consulting Physician Colon and Rectal Surgery 06/19/23 Leslie Guo APRN, CERTIFIED SCRUM MASTER [address] [place] [address] Nurse Practitioner Advanced Practice Nurse 12/28/22 Ortiz Martinez MD [address] [place] [address] Consulting Physician Medical Oncology 10/13/23 documented as of this encounter
--- OUTSIDE RECORDS SUMMARY | 2025-04-17 09:08 | XMS_ITS | Encounter Summary ---
Author Organization [facility] Address [address] [facility] [place] [address] Phone Care Team Providers Care Business Performance Advisor Name Role Phone Aspen Brock APRN, WATER SUPERVISOR Unavailable +- [phone] Laura Arreola APRN, FEDERAL JAVA DEVELOPER Primary Care Provider [phone] Alejandro Carson MD Unavailable Leslie Guo APRN, FEDERAL JAVA DEVELOPER Unavailable Ortiz Martinez MD Unavailable [phone] Reason for Visit * Reason Comments Medication Refill Encounter Details Date Type Department Care Team (Late st Contact Info) Description 07/18/2023 Refill [facility] - Neurology [facility] #2 [place] [phone] Aspen Brock APRN, WATER SUPERVISOR [address] [place] [address] Medication Refill Social History Tobacco Use Types [...] suspected to have Coronavirus/COVID-19? No / Unsure 07/14/2023 6:35 AM CDT documented as of this encounter Miscellaneous Notes * Telephone Encounter - Kerry Salmeron RN - 07/18/2023 8:34 AM CDT Medication failed the protocol, provider to review and approve the medication order if appropriate. Requested Prescriptions Pending Prescriptions Disp Refills topiramate (TOPAMAX) 100 MG Tablet [Pharmacy Med Name: TOPIRAMATE 100MG TABLETS] 60 Tablet 1 Sig: TAKE 1 TABLET BY MOUTH TWICE DAILY Not Delegated - Anticonvulsants Excluding Benzodiazepines Protocol Failed - 07/18/2023 5:35 AM Failed - This refill cannot be delegated Passed - Visit with relevant provider in past 12 months or upcoming 90 days Recent Visits Date Type Provider Dept 05/16/23 Office Visit Aspne Brock APRN, WATER SUPERVISOR [facility] 02/13/23 Office Visit Aspen Brock APRN, [facility] 10/21/22 Office Visit Aspen Brock APRN, WATER SUPERVISOR [facility] 10/05/22 Office Visit Aspen Brock APRN, [facility] 09/06/22 Office Visit Aspen Brock APRN, WATER SUPERVISOR [facility] 07/22/22 Office Visit Aspen Brock APRN, WATER SUPERVISOR [facility] Showing recent visits within past 365 days and meeting all other requirements Future Appointments No visits were found meeting these conditions. Showing future appointments within next 90 days and meeting all other requirements documented in this encounter Plan of Treatment Upcoming Encounters Date Type Department Care Team (Late st Contact Info) Description 04/22/2025 9:15 AM CDT Office Visit [facility] Oncology Services [address] [place] [address] Sophie Aguirre Della, PAC [address] [place] [address] Rosita Willard, CHAIR AND COUCH MAKER, FEDERAL JAVA DEVELOPER [address] [place] [address] Discharge Disposition: Discharged to home or Selfcare 07/07/2025 3:00 PM CDT Office Visit [facility] - Neurology [facility] [address] [place] [address] Aspen Brock CHAIR AND COUCH MAKER, WATER SUPERVISOR [address] [place] [address] documented as of this encounter Visit Diagnoses Diagnosis Chronic migraine w/o aura w/o status migrainosus, not intractable Chronic migraine without aura, without mention of intractable migraine without mention of status migrainosus documented in this encounter Care Teams Business Performance Advisor Relationship Specialty Start Date End Date Laura Arreola APRN, FEDERAL JAVA DEVELOPER [address] [address] PCP - General Family Medicine 07/22/22 Aspen Brock, CHAIR AND COUCH MAKER, WATER SUPERVISOR [address] [place] [address] Nurse Practitioner Advanced Practice Nurse 12/31/21 Alejandro Carson MD #[address] [address] Consulting Physician Colon and Rectal Surgery 06/19/23 Leslie Guo APRN, FEDERAL JAVA DEVELOPER [address] [place] [address] Nurse Practitioner Advanced Practice Nurse 12/28/22 Ortiz Martinez MD [address] [place] [address] Consulting Physician Medical Oncology 10/13/23 documented as of this encounter
--- OUTSIDE RECORDS SUMMARY | 2025-04-17 09:08 | XMS_ITS | Encounter Summary ---
Author Organization [facility] Address [address] [facility] [place] [address] Phone Care Team Providers Care Forge Tender Name Role Phone Aspen Brock APRN, SEX WORKER OR ESCORT Unavailable + [phone] Laura rAreola APRN, EQUAL OPPORTUNITY SPECIALIST Primary Care Provider [phone] Alejandro Carson MD Unavailable Leslie Guo APRN, EQUAL OPPORTUNITY SPECIALIST Unavailable Ortiz Martinez MD Unavailable [phone] Reason for Visit * Reason Comments Medication Refill Encounter Details Date Type Department Care Team (Late Contact Info) Description 02/07/2025 Refill [facility] - G[facility]enterology [facility] #2 [place] [address] Leslie Guo APRN, EQUAL OPPORTUNITY SPECIALIST [address] [place] [address] Medication Refill Social History Tobacco Use Types [...] on file documented as of this encounter Plan of Treatment Upcoming Encounters Date Type Department Care Team (Late Contact Info) Description 04/22/2025 9:15 AM CDT Office Visit [facility] Oncology Services [address] [place] [phone] Aguirre Sophie Della, PAC [address] [place] [address] Rosita Willard APRN, EQUAL OPPORTUNITY SPECIALIST [address] [place] [address] Discharge Disposition: Discharged to home or Selfcare 07/07/2025 3:00 PM CDT Office Visit [facility] #2 [place] [phone] Aspen Brock APRN, SEX WORKER OR ESCORT [address] [place] [address] documented as of this encounter Visit Diagnoses Diagnosis Gastroesophageal reflux disease, unspecified whether esophagitis present documented in this encounter Care Teams Forge Tender Relationship Specialty Start Date End Date Laura Arreola APRN, EQUAL OPPORTUNITY SPECIALIST [address] [address] PCP - General Family Medicine 07/22/22 Aspen Brock APRN, SEX WORKER OR ESCORT [address] [place] [address] Nurse Practitioner Advanced Practice Nurse 12/31/21 Alejandro Carson MD #[address] [address] Consulting Physician Colon and Rectal Surgery 06/19/23 Leslie Guo APRN, EQUAL OPPORTUNITY SPECIALIST [address] [place] [address] Nurse Practitioner Advanced Practice Nurse 12/28/22 Ortiz Martinez MD [address] [place] [address] Consulting Physician Medical Oncology 10/13/23 documented as of this encounter
--- OUTSIDE RECORDS SUMMARY | 2025-04-17 09:09 | XMS_ITS | Encounter Summary ---
Author Organization [facility] Address [address] [facility] [place] [address] Care Team Providers Care Inventory Control Specialist Name Role Phone Tonya Lr MD Primary Care Provider [phone] Encounter Details Date Type Department Care Team (Late st Contact Info) Description 01/01/2020 Telephone [facility] - [address] [address] Smooth Jackson MD [address] [place] [address] Social History Tobacco Use Types Packs/Day Years Used Date Smoking Tobacco: Never Smokeless Tobacco: Never Comments:dad outside Comments No Sex and Gender Information Value Date Recorded Sex Assigned at Not on file Legal Sex Female 5:45 AM ROSE GROWER Gender Identity Not on file Sexual Orientation Not on file COVID-19 Exposure Response Date Recorded In the last month, have you been in contact with someone who was confirmed or suspected to have Coronavirus / COVID-19? No / Unsure 01/02/2020 12:26 PM CDT documented as of this encounter Functional Status * Is person deaf or have serious hearing difficulty? Answer Date of Assessment Author No 12/06/2019 2:51 PM Facundo Meraz RN * Is person blind or have serious difficulty seeing? Answer Date of Assessment Author No 12/06/2019 2:51 PM ROSE GROWER Facundo Rocha RN * Does person have serious difficulty walking/climbing stairs? Answer Date of Assessment Author No 12/06/2019 2:51 PM ROSE GROWER Facundo Rocha RN * Does person have difficulty dressing/bathing? Answer Date of Assessment Author No 12/06/2019 2:51 PM ROSE GROWER Facundo Rocha RN * Does person have difficulty doing errands alone? Answer Date of Assessment Author No 12/06/2019 2:51 PM ROSE GROWER Facundo Rocha RN documented as of this encounter Mental Status * Does person have difficulty concentrating/remembering/making decisions? Answer Entry Date Author No 12/06/2019 2:51 PM ROSE GROWER Facundo Rocha RN documented in this encounter Miscellaneous Notes * Telephone Encounter - Isabela Adams RN - 01/03/2020 9:59 AM CDT Spoke to mom, reviewed ok to see LAND DEGRADATION ANALYST. Mom would like a telemedicine appointment if possible. Mom would like to know what to do about the pain. Told mom she needs to get more information for usto be able to help. Pain location? Mom states that it is the same and we have that in the notes. Anything that makes the pain worse or better? Stools: frequency, consistency, pain, blood, etc?? Mom will find out those things and call us back. * Telephone Encounter - Smooth Jackson MD - 01/03/2020 7:59 AM CDT Yes keep that appt with LAND DEGRADATION ANALYST * Telephone Encounter - Easton Stallings - 01/02/2020 12:22 PM CDT Follow up rescheduled for 03/06/20 at 9:00 AM with [facility] in [place]. However, Mom says that the pt is still having stomach pain and pain in her chest, the same as she and Dr. Jackson were discussing after her procedure. The pt also doesn't know if she's been having bowel movements every day. Mom says that if we can set up Telemedicine, she would appreciate a call, and she would also like to make sure that Dr. Jackson is okay with the pt seeing a LAND DEGRADATION ANALYST, since he has no availability until April. * Telephone Encounter - Easton Stallings - 01/02/2020 10:05 AM CDT Per another encounter, Dr. Jackson states: Please lita from 01/05 * Telephone Encounter - Easton Stallings - 01/01/2020 2:22 PM CDT Mom left a message wondering if pt is still able to come to her appt 01/[address] Jackson at [facility]. She can be reached at [phone]. documented in this encounter Plan of Treatment Not on file documented as of this encounter Visit Diagnoses Not on filedocumented in this encounter Care Teams Inventory Control Specialist Relationship Specialty Start Date End Date Tonya Lr MD [facility] [address] [place] [address] PCP - General 04/13/10 documented as of this encounter
--- OUTSIDE RECORDS SUMMARY | 2025-04-17 09:09 | XMS_ITS | Encounter Summary ---
Author Organization [facility] Address [address] [facility] [place] [address] Phone Care Team Providers Care Edge Bander Operator Name Role Phone Aspen Brock APRN, DENTAL MOLD MAKER Unavailable [phone]- [phone] Laura Arreola APRN, CONTINUOUS PROCESS ROTARY DRUM TANNER Primary Care Provider [phone] Alejandro Carson MD Unavailable Leslie Guo APRN, CONTINUOUS PROCESS ROTARY DRUM TANNER Unavailable Ortiz Martinez MD Unavailable [phone] Encounter Details Date Type Department Care Team (Latest Contact Info) Description 04/15/2025 Results Follow-Up [facility] Oncologists [address] [place] [address] Rosita Willard, DIRECTOR OF CARDIOLOGY, CONTINUOUS PROCESS ROTARY DRUM TANNER [address] [place] [address] CBC WITH AUTO DIFFERENTIAL Social History Tobacco Use Types Packs/Day Years [...] Description 04/22/2025 9:15 AM CDT Office Visit [facility] Oncology Services [address] [place] [phone] Sophie Aguirre, PAC [address] [place] [address] Rosita Willard APRN, CONTINUOUS PROCESS ROTARY DRUM TANNER [address] [place] [address] Discharge Disposition: Discharged to home or Selfcare 07/07/2025 3:00 PM CDT Office Visit [facility] [place] [facility] #[address] [place] [address] Aspen Brock APRN, DENTAL MOLD MAKER [address] [place] [address] documented as of this encounter Visit Diagnoses Not on filedocumented in this encounter Care Teams Edge Bander Operator Relationship Specialty Start Date End Date Laura Arreola APRN, CONTINUOUS PROCESS ROTARY DRUM TANNER [address] [facility] [address] [place] [address] PCP - General Family Medicine 07/22/22 Aspen Brock APRN, DENTAL MOLD MAKER [address] [place] [address] Nurse Practitioner Advanced Practice Nurse 12/31/21 Alejandro Carson MD #[address] [address] Consulting Physician Colon and Rectal Surgery 06/19/23 Leslie Guo APRN, CONTINUOUS PROCESS ROTARY DRUM TANNER [address] [place] [address] Nurse Practitioner Advanced Practice Nurse 12/28/22 Ortiz Martinez MD [address] [place] [address] Consulting Physician Medical Oncology 10/13/23 documented as of this encounter
--- OUTSIDE RECORDS SUMMARY | 2025-04-17 09:09 | XMS_ITS | Encounter Summary ---
Author Organization [facility] Address [address] [facility] [place] [address] Phone Care Team Providers Care Assistant Professor Of Forestry Name Role Phone Aspen Brock APRN, PATROL DEPUTY SHERIFF Unavailable [phone]- [phone] Laura Arreola APRN, COSMETOLOGY TEACHER Primary Care Provider [phone] Alejandro Carson MD Unavailable Leslie Guo APRN, COSMETOLOGY TEACHER Unavailable Ortiz Martinez MD Unavailable [phone] Reason for Visit * Reason Comments Medication Refill Encounter Details Date Type Department Care Team (Late Contact Info) Description 12/29/2023 Refill [facility] #[address] [place] [address] Aspen Brock OPEN HEARTH HELPER, PATROL DEPUTY SHERIFF [address] [place] [address] Medication Refill Social History Tobacco Use Types [...] Description 04/22/2025 9:15 AM CDT [facility] [address] [place] [phone] Timohty Sophie Della, PAC [address] [place] [address] Rosita Willard APRN, COSMETOLOGY TEACHER [address] [place] [address] Discharge Disposition: Discharged to home or Selfcare 07/07/2025 3:00 PM CDT Office Visit [facility] #[address] [place] [phone] Aspen Brock APRN, PATROL DEPUTY SHERIFF [address] [place] [address] documented as of this encounter Visit Diagnoses Not on filedocumented in this encounter Care Teams Assistant Professor Of Forestry Relationship Specialty Start Date End Date Laura Arreola APRN, COSMETOLOGY TEACHER [address] [address] PCP - General Family Medicine 07/22/22 Aspen Brock APRN, PATROL DEPUTY SHERIFF [address] [place] [address] Nurse Practitioner Advanced Practice Nurse 12/31/21 Alejandro Carson MD #[address] [address] Consulting Physician Colon and Rectal Surgery 06/19/23 Leslie Guo APRN, COSMETOLOGY TEACHER [address] [place] [address] Nurse Practitioner Advanced Practice Nurse 12/28/22 Ortiz Martinez MD [address] [place] [address] Consulting Physician Medical Oncology 10/13/23 documented as of this encounter
--- OUTSIDE RECORDS SUMMARY | 2025-04-17 09:09 | XMS_ITS | Encounter Summary ---
Author Organization [facility] Address [address] [facility] [place] [address] Phone Care Team Providers Care Dosier Operator Name Role Phone Aspen Brock APRN, MONOMER PURIFICATION OPERATOR Unavailable [phone]- [phone] Laura Arreola APRN, FLAGGER Primary Care Provider [phone] Alejandro Carson MD Unavailable Leslie Guo APRN, FLAGGER Unavailable Ortiz Martinez MD Unavailable [phone] Reason for Visit * Reason Comments Medication Refill Encounter Details Date Type Department Care Team (Late st Contact Info) Description 12/28/2023 Refill [facility] [place] [phone] Aspen Brock LAWN MOWER OPERATOR, MONOMER PURIFICATION OPERATOR [address] [place] [address] Medication Refill Social History Tobacco Use Types [...] Telephone Encounter - Kerry Salmeron RN - 12/29/2023 8:08 AM CDT Medication failed the protocol, provider to review and approve the medication order if appropriate. Requested Prescriptions Pending Prescriptions Disp Refills cyclobenzaprine (FLEXERIL) 5 MG Tablet [Pharmacy Med Name: CYCLOBENZAPRINE 5MG TABLETS] 15 Tablet 0 Sig: TAKE 1 TABLET BY MOUTH TWICE DAILY NEEDED FOR MUSCLE SPASMS Not Delegated - Muscle Relaxants Protocol Failed - 12/28/2023 9:14 PM Failed - This refill cannot be delegated Passed - Visit with relevant provider in past 12 months or upcoming 90 days Recent Visits Date Type Provider Dept 11/15/23 Office Visit Aspen Brock APRN [facility] 05/16/23 Office Visit Aspen Brock APRN [facility] 02/13/23 Office Visit Aspen Brock APRN [facility] Showing recent visits within past 365 days and meeting all other requirements Future Appointments No visits were found meeting these conditions. Showing future appointments within next 90 days and meeting all other requirements metoclopramide (REGLAN) 5 MG Tablet [Pharmacy Med Name: METOCLOPRAMIDE 5MG TABLETS] 360 Tablet Sig: TAKE 1 TABLET BY MOUTH FOUR TIMES DAILY BEFORE MEALS AND AT NIGHT Not Delegated - GI Stimulants Protocol Failed - 12/28/2023 9:14 PM Failed - This refill cannot be delegated Passed - Visit with relevant provider in past 12 months or upcoming 90 days Recent Visits Date Type Provider Dept 11/15/23 Office Visit Aspen Brock APRN [facility] 05/16/23 Office Visit Aspen Brock APRN [facility] 02/13/23 Office Visit Aspen Brock APRN [facility] Showing recent visits within past 365 days and meeting all other requirements Future Appointments No visits were found meeting these conditions. Showing future appointments within next 90 days and meeting all other requirements naproxen (NAPROSYN) 500 MG Tablet [Pharmacy Med Name: NAPROXEN 500MG TABLETS] 60 Tablet 0 Sig: TAKE 1 TABLET BY MOUTH EVERY 8 HOURS NEEDED FOR HEADACHE NSAIDs Protocol Failed - 12/28/2023 9:14 PM Failed - Normal serum creatinine in past 12 months CREATININE, BLOOD Date Value Ref Range Status 10/21/2022 0.86 0.60 - 1.10 mg/dL Final Failed - AST less than 55 or ALT less than 90 in past 12 months SGOT (AST) Date Value Ref Range Status 08/24/2022 13 <=32 U/L Final SGPT (ALT) Date Value Ref Range Status 08/24/2022 10 <=41 U/L Final Passed - No positive test in the past 12 months or most recent test was negative Passed - Visit with relevant provider in past 12 months or upcoming 90 days Recent Visits Date Type Provider Dept 11/15/23 Office Visit Aspen Brock APRN, MONOMER PURIFICATION OPERATOR [facility] Neurology [facility] 05/16/23 Office Visit Aspen Brock APRN, MONOMER PURIFICATION OPERATOR [facility] 02/13/23 Office Visit Aspen Brock APRN, MONOMER PURIFICATION OPERATOR [facility] Showing recent visits within past 365 days and meeting all other requirements Future Appointments No visits were found meeting these conditions. Showing future appointments within next 90 days and meeting all other requirements Passed - No active on record Passed - No matching NSAID med order in past 45 days No matching medication orders between 11/14/2023 8:08 AM and 12/29/2023 8:08 AM Passed - HGB greater than 10 or HCT greater than 30 in past 12 months HEMOGLOBIN (HGB) Date Value Ref Range Status 10/12/2023 14.4 12.0 - 15.8 g/dL Final HEMATOCRIT (HCT) Date Value Ref Range Status 10/12/2023 43.4 36.0 - 47.0 % Final documented in this encounter Plan of Treatment Upcoming Encounters Date Type Department Care Team (Late st Contact Info) Description 04/22/2025 9:15 AM CDT Office Visit [facility] Oncology Services [address] [place] [phone] Sophie Aguirre Della, PAC [address] [place] [address] Rosita Willard APRN, FLAGGER [address] [place] [address] Discharge Disposition: Discharged to home or Selfcare 07/07/2025 3:00 PM CDT Office Visit [facility] [place] [phone] Aspen Brock APRN, MONOMER PURIFICATION OPERATOR [address] [place] [address] documented as of this encounter Visit Diagnoses Diagnosis Chronic migraine w/o aura w/o status migrainosus, not intractable Chronic migraine without aura, without mention of intractable migraine without mention of status migrainosus Episodic migraine documented in this encounter Care Teams Dosier Operator Relationship Specialty Start Date End Date Laura Arreola APRN, FLAGGER [address] [address] PCP - General Family Medicine 07/22/22 Aspen Brcok APRN, MONOMER PURIFICATION OPERATOR [address] [place] [address] Nurse Practitioner Advanced Practice Nurse 12/31/21 Alejandro Carson MD #[address] [address] Consulting Physician Colon and Rectal Surgery 06/19/23 Leslie Guo APRN, FLAGGER [address] [place] [address] Nurse Practitioner Advanced Practice Nurse 12/28/22 Ortiz Martinez MD [address] [place] [address] Consulting Physician Medical Oncology 10/13/23 documented as of this encounter
--- OUTSIDE RECORDS SUMMARY | 2025-04-17 09:09 | XMS_ITS | Encounter Summary ---
Author Organization [facility] Address [address] [facility] [place] [address] Phone Care Team Providers Care Employee Counselor Name Role Phone Aspen Brock APRN, GRINDER OUTSIDE DIAMETER Unavailable [phone]- [phone] Laura Arreola APRN, VESSEL ORDINARY SEAMAN Primary Care Provider [phone] Alejandro Carson MD Unavailable Leslie Guo APRN, VESSEL ORDINARY SEAMAN Unavailable Ortiz Martinez MD Unavailable [phone] Reason for Visit * Reason Comments Medication Refill Encounter Details Date Type Department Care Team (Late st Contact Info) Description 12/23/[address] [facility] - Neurology [facility] [address] [place] [id number] Aspen Brock EXTENSION SERVICE AGENT, GRINDER OUTSIDE DIAMETER [address] [place] [address] Medication Refill Social History Tobacco Use Types [...] Telephone Encounter - Kerry Salmeron RN - 12/25/2023 8:13 AM CDT Medication failed the protocol, provider to review and approve the medication order if appropriate. Requested Prescriptions Pending Prescriptions Disp Refills hydrOXYzine (ATARAX) 10 MG Tablet [Pharmacy Med Name: HYDROXYZINE HCL 10MG TABLETS] 15 Tablet 0 Sig: TAKE 2 AND 1/2 TABLETS BY MOUTH EVERY 8 HOURS NEEDED FOR MIGRAINES Not Delegated - Off Protocol Failed - 12/23/2023 10:13 AM Failed - This refill cannot be delegated Passed - Visit with relevant provider in past 12 months or upcoming 90 days Recent Visits Date Type Provider Dept 11/15/23 Office Visit Aspen Brock APRN, [facility] Neurology [facility] 05/16/23 Office Visit Aspen Brock APRN, GRINDER OUTSIDE DIAMETER [facility] 02/13/23 Office Visit Aspen Brock APRN, [facility] Neurology [facility] Showing recent visits within past 365 days and meeting all other requirements Future Appointments No visits were found meeting these conditions. Showing future appointments within next 90 days and meeting all other requirements documented in this encounter Plan of Treatment Upcoming Encounters Date Type Department Care Team (Late st Contact Info) Description 04/22/2025 9:15 AM CDT Office Visit [facility] - [facility] Center Oncology Services [address] [place] [address] Sophie Aguirre Della, PAC [address] [place] [address] Rosita Willard APRN, VESSEL ORDINARY SEAMAN [address] [place] [address] Discharge Disposition: Discharged to home or Selfcare 07/07/2025 3:00 PM CDT Office Visit [facility] Neurology [facility] [address] [place] [address] Aspen Brock APRN, GRINDER OUTSIDE DIAMETER [address] [place] [address] documented as of this encounter Visit Diagnoses Not on filedocumented in this encounter Care Teams Employee Counselor Relationship Specialty Start Date End Date Laura Arreola APRN, VESSEL ORDINARY SEAMAN [address] [address] PCP - General Family Medicine 07/22/22 Aspen Brock APRN, GRINDER OUTSIDE DIAMETER [address] [place] [address] Nurse Practitioner Advanced Practice Nurse 12/31/21 Alejandro Carson MD #[address] [address] Consulting Physician Colon and Rectal Surgery 06/19/23 Leslie Guo APRN, VESSEL ORDINARY SEAMAN [address] [place] [address] Nurse Practitioner Advanced Practice Nurse 12/28/22 Ortiz Martinez MD [address] [place] [address] Consulting Physician Medical Oncology 10/13/23 documented as of this encounter
--- OUTSIDE RECORDS SUMMARY | 2025-04-17 09:09 | XMS_ITS | Encounter Summary ---
Author Organization [facility] Address [address] [facility] [place] [place] [address] Phone Care Team Providers Care Questioned Documents Examiner Name Role Phone Aspen Brock APRN, GREEN INSPECTOR Unavailable [phone]- [phone] Laura Arreola APRN, AUDIOMETRIST Primary Care Provider [phone] Alejandro Carson MD Unavailable Leslie Guo APRN, AUDIOMETRIST Unavailable Ortiz Martinez MD Unavailable [phone] Reason for Visit * Reason Comments Medication Refill Encounter Details Date Type Department Care Team (Late st Contact Info) Description 02/24/[address] [facility] - Neurology [facility] [address] [place] [phone] Aspen Brock GARMENT LINER, GREEN INSPECTOR [address] [place] [address] Medication Refill Social History Tobacco Use Types [...] Telephone Encounter - Kerry Salmeron RN - 02/26/2024 8:27 AM CDT Medication failed the protocol, provider to review and approve the medication order if appropriate. Requested Prescriptions Pending Prescriptions Disp Refills Galcanezumab-gnlm (Emgality) 120 MG/ML Solution Auto-injector [Pharmacy Med Name: Emgality 120 MG/ML Subcutaneous Solution Auto-injector] 1 mL 2 Sig: INJECT 1 PEN SUBCUTANEOUSLY ONCE EVERY 28 DAYS Not Delegated - Off Protocol Failed - 02/24/2024 10:04 AM Failed - This refill cannot be delegated Passed - Visit with relevant provider in past 12 months or upcoming 90 days Recent Visits Date Type Provider Dept 11/15/23 Office Visit Aspen Brock APRN, GREEN INSPECTOR [facility] Neurology [facility] 05/16/23 Office Visit Aspen Brock APRN, [facility] Showing recent visits within past 365 days and meeting all other requirements Future Appointments Date Type Provider Dept 05/16/24 Appointment Aspen Brock APRN, GREEN INSPECTOR [facility] Neurology [facility] Showing future appointments within next 90 days and meeting all other requirements documented in this encounter Plan of Treatment Upcoming Encounters Date Type Department Care Team (Late st Contact Info) Description 04/22/2025 9:15 AM CDT Office Visit [facility] - Cancer Center Oncology Services [address] [place] [address] Sophie Aguirre, PAC [address] [place] [address] Rosita Willard APRN, AUDIOMETRIST [address] [place] [address] Discharge Disposition: Discharged to home or Selfcare 07/07/2025 3:00 PM CDT Office Visit [facility] - Neurology [facility] [address] [place] [address] Aspen Brock APRN, GREEN INSPECTOR [address] [place] [address] documented as of this encounter Visit Diagnoses Not on filedocumented in this encounter Care Teams Questioned Documents Examiner Relationship Specialty Start Date End Date Laura Arreola APRN, AUDIOMETRIST [address] [address] PCP - General Family Medicine 07/22/22 Aspen Brock APRN, GREEN INSPECTOR [address] [place] [address] Nurse Practitioner Advanced Practice Nurse 12/31/21 Alejandro Carson MD #[address] [address] Consulting Physician Colon and Rectal Surgery 06/19/23 Leslie Guo APRN, AUDIOMETRIST [address] [place] [address] Nurse Practitioner Advanced Practice Nurse 12/28/22 Ortiz Martinez MD [address] [place] [address] Consulting Physician Medical Oncology 10/13/23 documented as of this encounter
--- OUTSIDE RECORDS SUMMARY | 2025-04-17 09:09 | XMS_ITS | Clinical Summary ---
Author Organization [facility] - NEUROLOGY [facility] Address [address] [place] [address] Phone Care Team Providers Care Water Resource Manager Name Role Phone StanleyAspen yates Jennifer SERVICE LINE BUS CLEANER, FUNERAL SALES MANAGER Unavailable [phone] Laura Arreola APRN, BAG BLEACHER Primary Care Provider [phone] Alejandro Carson MD Unavailable Leslie Guo APRN, BAG BLEACHER Unavailable Ortiz Martinez MD Unavailable [phone] Allergies Active Allergy Reactions Criticality Noted Date Comments Cobalamin Combinations Rash 10/21/2024 Medications albuterol 108 (90 Base) MCG/ACT Aerosol Solution 2 Active fluticasone (FLONASE) 50 MCG/ACT Suspension as needed. 2 Active famotidine (PEPCID) 20 MG Tablet Take by mouth in the morning and at bedtime. Active folic acid (FOLVITE) 1 MG Tablet Take 1,000 mcg by mouth daily. 2 Active ergocalciferol (VITAMIN D) [address]12[address] UNIT Capsule Fridays 3 Active Inés 1.5/30 1.5-30 MG-MCG Tablet 3 Active acetaminophen (TYLENOL) 325 MG Tablet Take 1 Tablet by mouth every 6 hours as needed for Fever (for temperature greater than 100.4 F.). Do not exceed 4000 mg of acetaminophen in 24 hour from all sources. 3 Active omeprazole (PriLOSEC) 20 MG CAPSULE DELAYED RELEASEIndicati ons:Gastroesoph ageal reflux disease, unspecified whether esophagitis present Take 1 Capsule by mouth daily. 90 Capsule 3 4 Active hydrOXYzine (ATARAX) 25 MG TabletIndicatio ns:Chronic migraine w/o aura w/o status migrainosus, not intractable Take 1 Tablet by mouth every 8 hours as needed (migraine). Take 1 tab by mouth with naproxen 500mg every 8 hours as needed for migraine 15 Tablet 2 4 Active cyclobenzaprine (FLEXERIL) 5 MG TabletIndicatio ns:Chronic migraine w/o aura w/o status migrainosus, not intractable TAKE 1 TABLET BY MOUTH TWICE DAILY NEEDED FOR MUSCLE SPASMS 15 Tablet 4 Active buPROPion (WELLBUTRIN) 150 MG XL tablet TAKE 1 TABLET BY MOUTH EVERY DAY NEEDED 4 Active traZODone (DESYREL) 50 MG Tablet Take 50 mg by mouth nightly as needed for Sleep. Active propranolol (INDERAL LA) 60 MG CAPSULE SR 24 HR Take 60 mg by mouth daily. 4 025 Active Galcanezumab-gn lm (Emgality) 120 MG/ML Solution Auto-injectorIn dications:Migra ine 120 mg by Subcutaneous route every 28 days. Indications: Migraine Headache 3 mL 1 5 Active naproxen (NAPROSYN) 500 MG TabletIndicatio ns:Migraine Take 1 Tablet by mouth 2 times daily as needed for Moderate or more severe pain or Other (migraine). Indications: Migraine Headache 60 Tablet 1 5 Active Active Problems Problem Noted Date Diagnosed Date Iron deficiency 10/21/2024 Low vitamin B12 level 10/21/2024 Family history of breast cancer 10/13/2023 Other specified diseases of gallbladder 07/14/20 Chronic joint pain 12/09/2022 Primary insomnia 12/09/2022 Iron deficiency anemia 08/31/2022 Thrombocytosis 08/24/2022 Gastroesophageal reflux disease without esophagi tis 08/24/2022 Hx of migraines 08/24/2022 Family history of autoimmune disorder 08/24/2022 Encounters Date Type Department Care Team Description 04/15/2025 1:15 PM CDT Lab [facility] Mobile Oncology Services [address] [place] [address] Rosita Willard APRN, BAG BLEACHER Iron deficiency anemia, unspecified iron deficiency anemia type; Thrombocytosis; Low vitamin B12 level Discharge Disposition: Discharged to home or Selfcare 04/15/2025 Results Follow-Up [facility] Oncologists [address] [place] [address] Rosita Willard APRN, RAFAL CBC WITH AUTO DIFFERENTIAL 04/15/2025 Travel 02/07/2025 Refill [facility] - Gastroenterology [facility] [address] [place] [phone] Leslie Guo APRN, RAFAL Medication Refill from Last 3 Months Immunizations Immunization Administration Dates Next Due DTAP VACCINE 04/02/2008, 4,2003,05/20,2003 HEP B/HIB Combined Vaccine 01/20/2004,2003 ,2003 Hepatitis A, Pediatric, Unsp ecified Formulation 04/02/2008,02/19/2007 Hepatitis B Vaccine, Pediatric/adolescent 2003 Inactivated Polio Vaccine 04/02/2008,,2003,03/20 Influenza Vaccine Nasal 08/06/2012 Influenza Vaccine Quadrivalent Nasal 08/25/2014 Influenza Vaccine, Quadrivalent, PF 08/09,07/21/2020,08/17/2015,08/22 Influenza Vaccine,unspecifie d Formulation 08/23/2007,07/27/2004,2003,09/03 MMR Vaccine 04/02/2008,01/20/2004 Meningococcal Vaccine 07/21/2020,01/27/2014 Pneumococcal Vaccine Peds - 7 Valent ,2003,2003,03/20 TDAP Vaccine 08/22/2013 Varicella Vaccine Live 04/02/2008,07/27/2004 Family History Medical History Relation Name Comments No Known Problems Father No Known Problems Half-Brother 1 No Known Problems Half-Brother 2 No Known Problems Half-Sister 1 No Known Problems Half-Sister 2 Congestive Heart Failure Mother Migraines Mother Diabetes Paternal Grandmother Relation Name Status Comments Father Alive Half-Brother 1 Alive Half-Brother 2 Alive Half-Sister 1 Alive Half-Sister 2 Alive Mother Alive Paternal Grandmother Social History Tobacco Use Types Packs/Day Years Used Date Smoking Tobacco: Never Smokeless Tobacco: Never Tobacco Cessation:Counseling Given: Not Answered Alcohol Use Standard Drinks/Week Comments Never 0 [...] Sign Reading Time Taken Comments Blood Pressure 120/82 01/14/2025 2:33 PM CDT Pulse 101 01/14/2025 2:33 PM CDT Temperature 36.4 C (97.6 F) 01/14/2025 2:33 PM CDT Respiratory Rate 17 01/14/2025 2:33 PM CDT Oxygen Saturation 99% 01/14/2025 2:33 PM CDT Inhaled Oxygen Concentration - - Weight 81.2 kg (179 lb) 01/14/2025 2:33 PM CDT Height 162.6 cm (5' 4) 01/14/2025 2:33 PM CDT Body Mass Index 30.73 01/14/2025 2:33 PM CDT Plan of Treatment Upcoming Encounters Date Type Department Care Team (Late st Contact Info) Description 04/22/2025 9:15 AM CDT [facility] [address] [place] [phone] Sophie Aguirre Della, PAC [address] [place] [address] Rosita Willard M, SERVICE LINE BUS CLEANER, BAG BLEACHER [address] [place] [address] Discharge Disposition: Discharged to home or Selfcare 07/07/2025 3:00 PM CDT Office Visit [facility] - Neurology - [place] [address] [place] [address] Aspen Brock APRN, FUNERAL SALES MANAGER [address] [place] [address] Health Maintenance Due Date Last Done Comments Hepatitis C Virus (HCV) Screening 2003 Human Papillomavirus (HPV) Immunization (1 - 3-dose series) 2018 Meningococcal B Immunization (1 of 2 - Standard) 2019 DTaP/Tdap/Td Immunization (7 - Td or Tdap) 08/22/2023 08/22/2013, 04/02/2008, 07/27/2004, Additional history exists Pap Smear 01/16/2024 SARS-COV-2 Immunization (2023- season) 2024 09/21/2022, 04/30/2021, 04/02/2021 Influenza Immunization (#1) 06/09/202508/09, 07/21/2020, 08/17/2015, Additional history exists Respiratory Syncytial Virus (RSV) Immunization (Adult) (1 - 1-dose 75+ series) 2078 Hepatitis B Immunization Completed 004, 2003, 2003, Additional history exists Pneumococcal Immunization Combined Aged Out 07/27/2004, 2003, 2003, Additional history exists No longer eligible based on patient's age to complete this topic Hepatitis A Immunization Discontinued 04/02/2008, 02/06 Measles Mumps Rubella (MMR) Immunization Discontinued 04/02/2008, 01/20/2004 Polio (IPV) Immunization Discontinued 008, 2003, 2003, Additional history exists Varicella Immunization Discontinued 04/02/2008, 2003 Meningococcal Immunization (ACWY) Completed 07/21/2020, 01/27/2014 Rotavirus Immunization Aged Out No lo nger eligible based on patient's age to complete this topic Procedures Procedure Name Priority Date/Time Associated Diagnosis Comments CBC WITH AUTO DIFFERENTIAL Routine 04/15/2025 1:19 PM CDT Iron deficiency anemia, unspecified iron deficiency anemia type Thrombocytosis IRON,TRANSFERN,CALC.T IBC,%SAT Routine 04/15/2025 1:19 PM CDT Iron deficiency anemia, unspecified iron deficiency anemia type VITAMIN B12 Routine 04/15/2025 1:19 PM CDT Low vitamin B12 level FOLIC ACID (FOLATE) Routine 04/15/2025 1 :19 PM CDT Low vitamin B12 level FERRITIN Routine 04/15/2025 1:19 PM CDT Iron deficiency anemia, unspecified iron deficiency anemia type COMPLETE BLOOD COUNT (CBC) WITH DIFF Routine 04/15/2025 1:19 PM CDT Iron deficiency anemia, unspecified iron deficiency anemia type Thrombocytosis from Last 3 Months Results * IRON,TRANSFERN,CALC.TIBC,%SAT (04/15/2025 1:19 PM CDT) IRON 80 25 - 156 mcg/dL 04/15/2025 2:17 PM CDT [facility] TRANSFERRIN 258 180 - 382 mg/dL 04/15/2025 2:17 PM CDT [facility] TIBC, CALCULATED 323 265 - 497 mcg/dL 04/15/2025 2:17 PM CDT [facility] % SATURATION * 25 15 - 62 % 04/15/2025 2:17 PM CDT [facility] Blood Venipuncture / Unknown 04/15/2025 1:19 PM CDT 04/15/2025 1:19 PM CDT us Rosita Willard SERVICE LINE BUS CLEANER, BAG BLEACHER CHEMISTRY ORDERABLES F inal Result [facility] [address] [place] [address] * (ABNORMAL) CBC WITH AUTO DIFFERENTIAL (04/15/2025 1:19 PM CDT) [facility] WBC 9.54 4.00 - 12.00 10(3)/mcL 04/15/2025 1:26 PM CDT [facility] RBC 4.41 3.80 - 5.30 10(6)/mcL 04/15/2025 1:26 PM CDT [facility] HEMOGLOBIN (HGB) 13.3 12.0 - 15.8 g/dL 04/15/2025 1:26 PM CDT [facility] HEMATOCRIT (HCT) 40.1 36.0 - 47.0 % 04/15/2025 1:26 PM CDT [facility] MCV 90.9 82.0 - 96.0 fL 04/15/2025 1:26 PM CDT [facility] MCH 30.2 26.0 - 34.0 pg 04/15/2025 1:26 PM CDT [facility] MCHC 33.2 31.0 - 36.0 g/dL 04/15/2025 1:26 PM CDT [facility] PLATELET COUNT 438 140 - 440 10(3)/mcL 04/15/2025 1:26 PM CDT [facility] RDW 12.2 11.8 - 15.5 % 04/15/2025 1:26 PM CDT [facility] MPV 9.4(L) 9.7 - 12.4 fL 04/15/2025 1:26 PM CDT [facility] NEUTROPHILS 58.3 47.0 - 73.0 % 04/15/2025 1:26 PM CDT [facility] LYMPHOCYTES 33.9 18.0 - 42.0 % 04/15/2025 1:26 PM CDT [facility] MONOCYTES 6.2 4.0 - 12.0 % 04/15/2025 1:26 PM CDT [facility] EOSINOPHILS 0.6 0.0 - 5.0 % 04/15/2025 1:26 PM CDT [facility] BASOPHILS 0.6 0.0 - 1.0 % 04/15/2025 1:26 PM CDT [facility] IMMATURE GRANULOCYTE 0.4 0.0 - 0.4 % 04/15/2025 1:26 PM CDT [facility] Comment:Immature Granulocyte s includes Metamyelocytes, Myelocytes, and Promyelocytes. ABSOLUTE NEUTROPHILS 5.56 1.60 - 7.70 10(3)/mcL 04/15/2025 1:26 PM CDT [facility] ABSOLUTE LYMPHOCYTES 3.23(H) 1.30 - 3.20 10(3)/mcL 04/15/2025 1:26 PM CDT [facility] ABSOLUTE MONOCYTES 0.59 0.20 - 1.00 10(3)/[facility] 04/15/2025 1:26 PM CDT [facility] ABSOLUTE EOSINOPHIL 0.06 0.00 - 0.40 10(3)/[facility] 04/15/2025 1:26 PM CDT [facility] ABSOLUTE BASOPHILS 0.06 0.00 - 0.10 10(3)/[facility] 04/15/2025 1:26 PM CDT [facility] ABSOLUTE IMMATURE GRANULOCYTE 0.04(H) 0.00 - 0.03 10 (3) mcL. 04/15/2025 1:26 PM CDT [facility] NRBC PER 100 WBC 0 04/15/20 1:26 PM CDT [facility] Blood Venipuncture / Unknown 04/15/2025 1:19 PM CDT 04/15/2025 1:19 PM CDT us Rosita Willard SERVICE LINE BUS CLEANER, BAG BLEACHER HEMATOLOGY ORDERABLES Final Result [facility] [address] [place] [address] * (ABNORMAL) VITAMIN B12 (04/15/2025 1:19 PM CDT) VITAMIN B12 210(L) 213 - 816 pg/mL 04/15/2025 2:17 PM CDT [facility] Blood Venipuncture / Unknown 04/15/2025 1:19 PM CDT 04/15/2025 1:19 PM CDT Rosita Willard APRN, BAG BLEACHER CHEMISTRY ORDERABLES F inal Result Performing Organization Address [facility] Co de Phone Number [facility] [address] [place] [address] * FOLIC ACID (FOLATE) (04/15/2025 1:19 PM CDT) [facility] FOLATE 9.0 7.0 - 31.4 ng/mL 04/15/2025 2:17 PM CDT [facility] IS THE PATIENT REQUIRED TO BE FASTING? No 04/15/2025 2:17 PM CDT [facility] Blood Venipuncture / Unknown 04/15/2025 1:19 PM CDT 04/15/2025 1:19 PM CDT Rosita Willard APRN, BAG BLEACHER CHEMISTRY ORDERABLES F inal Result Performing Organization Address [facility] Co de Phone Number [facility] [address] [place] [address] * (ABNORMAL) FERRITIN (04/15/2025 1:19 PM CDT) Pathologist [facility] FERRITIN 375(H) 5 - 204 ng/mL 04/15/2025 2:03 PM CDT [facility] Blood Venipuncture / Unknown 04/15/2025 1:19 PM CDT 04/15/2025 1:19 PM CDT Rosita Willard APRN, BAG BLEACHER CHEMISTRY ORDERABLES F inal Result Performing Organization Address City/[facility] Co de Phone Number [facility] [address] [place] [address] from Last 3 Months Insurance MEDICAID [employer] Care Teams Water Resource Manager Relationship Specialty Start Date End Date Laura Arreola APRN, BAG BLEACHER [address] LARSON [address] [place] [id number] PCP - General Family Medicine 07/22/22 Aspen Brock APRN, FUNERAL SALES MANAGER [address] [place] [address] Nurse Practitioner Advanced Practice Nurse 12/31/21 Alejandro Carson MD [address] [address] Consulting Physician Colon and Rectal Surgery 06/19/23 Leslie Guo APRN, BAG BLEACHER [address] [place] [address] Nurse Practitioner Advanced Practice Nurse 12/28/22 Ortiz Martinez MD [address] [place] [address] Consulting Physician Medical Oncology 10/13/23
== END 2025-04-17 08:59 | disposition home or self-care (01) ==
LOC: ANHIMG 09:00
PROVIDERS: PCP Nurse Practitioner Family; Visit Provider Nurse Practitioner
DX: R92.8 Other abnormal and inconclusive findings on diagnostic imaging of breast (principal); N64.59 Other signs and symptoms in breast
CPT/HCPCS: 76642